=== PATIENT | female | born 1950 | race Caucasian/White ===

== ENCOUNTER 2018-06-28 22:36 | Inpatient (IN) | payer MEDICARE, MEDICAID ==
[2018-06-29 00:06] VITALS: BP 123/60
[2018-06-29] MEDS ORDERED: Magnesium Hydroxide (MOM) 30 mL UDC PO PRN (02:41)
[2018-06-29] MEDS ORDERED: Maalox 30 mL Cup PO PRN (02:41)
--- NOTE | 2018-06-29 09:37 | History and Physical ---
History of Present Illness - HPI Chief Complaint: Suicidal ideation HPI: Patient walked in to ER stating that she wanted to walk into traffic to kill hersel. She was put in [id number]. She was transferred to this unit for treatment. Vital Signs: Last Vital Signs Temp Pulse 56 06/29/18 07:06 Resp 18 06/29/18 07:06 BP 130/77 06/29/18 07:06 Pulse Ox 94 06/29/18 07:06 Past Medical History Cardiovascular: Report: No Pertinent Hx Pulmonary: Report: No Pertinent Hx [employer]: Report: No Pertinent Hx GI: Report: No Pertinent Hx Psych: Report: No Pertinent Hx Musculoskeletal: Report: Osteoarthritis, Stiffness Rheumatologic: Report: No pertinent Hx Infectious Disease: Report: No Pertinent Hx Renal/: Report: No Pertinent Hx Endocrine: Report: No Pertinent Hx Dermatology: Report: No Pertinent Hx - Past Surgical History Past Surgical History: Other (Hysterectomy) Social History Smoke: No Alcohol: None Drugs: None Lives: Homeless Domestic Violence: Negative - Allergies Allergies/Adverse Reactions: Allergies Allergy/AdvReac Type Severity Reaction Status Date / Time hydrocodone Allergy Verified 06/29/18 02:20 lorazepam Allergy Verified 06/29/18 02:20 sulfamethoxazole Allergy Verified 06/29/18 02:20 [From Bactrim] trimethoprim [From Bactrim] Allergy Verified 06/29/18 02:20 Review of Systems - Review of Systems Constitutional: Report: No Significant Eyes: Report: No Significant ENT: Report: No Significant Respiratory: Report: No Significant Cardiovascular: Report: No Significant Gastrointestinal: Report: No Significant Genitourinary: Report: No Significant Musculoskeletal: Report: Neck Pain, Leg Pain Skin: Report: No Significant Neurological: Report: No Significant Physical Exam - Physical Exam HEENT: Report: Ears Nose Throat within normal limits Neck: Report: Within normal limits Cardiovascular Systems: Report: Regular, Rate and Rhythm Respiratory: Report: Breath Sounds are within normal limits Abdomen: Report: Non-tender to palpation Back: Report: Inspection of back is within normal limits. Extremities: Report: Non-tender to palpation. Skin: Report: Color of skin is within normal limits, Warm, Dry Neuro/Psych: Report: Mood affect is within normal limits - Lab Results All Lab Results last 24 hours: Laboratory Results - last 24 hr 06/29/18 06:28 POC Glucose 105 - Assessment Assessment: Patient is awake, calm in no acute distress. Dx: suicidal ideation, Osteoarthritis. - Plan Plan: Patient is under Psychiatric care. Will continue [facility] home meds.
--- NOTE | 2018-06-30 02:45 | Psychiatric Evaluation ---
DATE OF SERVICE: 06/29/2018 CHIEF COMPLAINT: "I was suicidal." HISTORY OF PRESENT ILLNESS: A 67-year-old female, currently in the hospital, noting she was feeling desperate. She tried to run into traffic, taken to [facility], transferred here, alluding to ongoing nervousness, feeling on edge, stating her mom a year ago. She has been feeling very lonely and upset, not felipe for safety, feeling suicidal. PAST PSYCHIATRIC HISTORY: Noted including a brief psychotic episode when she was 26, major depressive episode with hospitalization at the age of 36, and one suicide attempt many years ago around the age of 36. SOCIAL HISTORY: Born in [place], never , no kids, had been living with her mom up until last year. Mom and now living with a friend. The patient states that she stopped smoking decades ago. 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 Medications were noted. MENTAL STATUS EXAMINATION: Stated age, fair eye contact. Speech within normal limits. Mood "depressed." Affect is withdrawn. Thought processes were linear. The patient not felipe for safety, ongoing concerns about suicidality. No HI. No overt psychotic symptoms. Insight and judgment diminished. Impulse control is poor. PROVISIONAL DIAGNOSES: Major depression, recurrent, severe. No current evidence of psychosis. Also, anxiety, unspecified. Under medical, please see full H and P. ESTIMATED LENGTH OF STAY: 5-7 days. ASSESSMENT: The patient is depressed, tried to kill herself, still not felipe for safety, feeling hopeless. PLAN: We will continue Zoloft and Abilify. TREATMENT PLAN: Includes group as well as milieu therapy. CONDITIONS FOR DISCHARGE: Improved mood, improved affect, cessation of any SI. JOB# [id number]
[2018-06-30 06:13] LABS: % BASOPHILS 0.5 % (0.0-2.0); % EOSINOPHILS 5.7 % (0.0-5.0); % LYMPHOCYTES 17.5 % (20.0-50.0); % MONOCYTES 5.7 % (2.0-10.0); % NEUTROPHILS 70.6 % (40.0-80.0); EOSINOPHILE ABSOLUTE 0.6 Th/cmm (0.1-0.4); HEMATOCRIT 41.9 % (41.0-60); HEMOGLOBIN 14.3 gm/dL (12-16); LYMPHOCYTE ABSOLUTE 1.7 Th/cmm (1.5-3.0); MEAN CELL VOLUME 89.9 fl (81-100); MEAN CORPUSCULAR HEMOGLOBIN 30.7 pg (27.0-31.0); MEAN CORPUSCULAR HGB CONC 34.1 pg (28.0-36.0); MEAN PLATELET VOLUME 7.6 fl; MONOCYTE ABSOLUTE 0.6 Th/cmm (0.3-1.0); PLATELET COUNT 313 Th/cmm (150-400); RED BLOOD COUNT 4.66 Mil/cmm (3.80-5.20); RED CELL DISTRIBUTION WIDTH 12.7 % (11.5-20.0); WHITE BLOOD COUNT 9.9 Th/cmm (4.8-10.8)
[2018-06-30 06:48] LABS: ALB/GLOB RATIO 1.3 (1.0-1.8); ALBUMIN 3.9 gm/dL (3.7-5.3); ALKALINE PHOSPHATASE 80 U/L (34-104); ANION GAP 11.6 (7.0-16.0); BILIRUBIN,TOTAL 0.5 mg/dL (0.3-1.0); BUN - UREA NITROGEN 26 mg/dL (7-25); CALCIUM SERUM 10.2 mg/dL (8.6-10.3); CARBON DIOXIDE 25.4 mEq/L (21.0-31.0); CHLORIDE 109 mEq/L (98-107); CREATININE - SERUM 0.8 mg/dL (0.6-1.2); GFR AFRICAN-AMERICAN > 60.0 ml/min (>90); GFR NON AFRICAN-AMERICAN > 60.0 ml/min; GLUCOSE 95 mg/dL (70-105); SGOT 16 U/L (13-39); SGPT/ALT 14 U/L (7-52); SODIUM SERUM 142 mEq/L (136-145); TOTAL PROTEIN,SERUM 6.8 gm/dL (6.0-8.3)
--- NOTE | 2018-06-30 09:55 | Progress Notes ---
DATE: 06/30/2018 SUBJECTIVE: The patient is noting that her anxiety is less than 10 bands. She has been very suicidal, wanting to run into traffic, still depressed, withdrawn, still appearing somewhat on edge, but noting that she is less nervous. It is unclear where she is going to go when she leaves here, still noted to be withdrawn, isolative, ongoing concerns about suicidality, poor impulse control. Medications were noted. ASSESSMENT: The patient remains symptomatic, currently on Zoloft, low dose Abilify. We will continue to monitor. Continue medications at current dose including p.r.n. medications. JOB# [id number]
--- NOTE | 2018-07-01 22:05 | Progress Notes ---
DATE: 07/01/2018 SUBJECTIVE: The patient in the hospital, she was feeling very desperate, wanted to run into traffic, taken to [facility]. The patient is stating that she feels nervous, somewhat on edge, noting psychological distress, turmoil, difficulty sleeping last night. She is noting some improvements, less intrusive thoughts, decrease in suicidal thoughts or thinking. Still isolative, withdrawn, mostly keeps to herself. Currently on Zoloft dosing, Abilify. ASSESSMENT: The patient remains symptomatic. Ongoing safety concerns, status post suicide effort. We will continue to monitor. Continue Zoloft, Abilify. Medications were noted. Monitor for side effects. JOB# [id number]
--- NOTE | 2018-07-02 16:34 | Progress Notes ---
DATE: 07/02/2018 SUBJECTIVE: A 67-year-old female, currently in the hospital, feeling desperate, tried to run into traffic, taken to the [facility]. On [id number], the patient still remains quite depressed, withdrawn, feeling anxious, on edge, ongoing SI, not felipe for safety. She has nowhere to go at this time. She is apparently homeless, concerns about her ability to care for basic needs. Sleeping fairly well, eating well. ASSESSMENT: The patient is depressed, withdrawn, ongoing safety concerns. Continue Zoloft dosing, Abilify. We will be increasing the dosing of Abilify today to target ongoing severe depressive symptoms. Medications were noted. PLAN: We will continue to monitor on inpatient basis. JOB# [id number]
--- NOTE | 2018-07-03 10:17 | General Progress Note ---
Subjective - Review of Systems Service Date: 07/03/18 Subjective: I am better Objective - Results Result Diagrams: 06/30/18 06:05 06/30/18 06:05 Recent Labs: Laboratory Last Values WBC 9.9 Th/cmm (4.8-10.8) 06/30/18 06:05 RBC 4.66 Mil/cmm (3.80-5.20) 06/30/18 06:05 Hgb 14.3 gm/dL (12-16) 06/30/18 06:05 Hct 41.9 % (41.0-60) 06/30/18 06:05 MCV 89.9 fl (81-100) 06/30/18 06:05 MCH 30.7 pg (27.0-31.0) 06/30/18 06:05 MCHC Differential 34.1 pg (28.0-36.0) 06/30/18 06:05 RDW 12.7 % (11.5-20.0) 06/30/18 06:05 Plt Count 313 Th/cmm (150-400) 06/30/18 06:05 MPV 7.6 fl 06/30/18 06:05 Neutrophils % 70.6 % (40.0-80.0) 06/30/18 06:05 Lymphocytes % 17.5 % (20.0-50.0) L 06/30/18 06:05 Monocytes % 5.7 % (2.0-10.0) 06/30/18 06:05 Eosinophils % 5.7 % (0.0-5.0) H 06/30/18 06:05 Basophils % 0.5 % (0.0-2.0) 06/30/18 06:05 Sodium 142 mEq/L (136-145) 06/30/18 06:05 Potassium 4.0 mEq/L (3.5-5.1) 06/30/18 06:05 Chloride 109 mEq/L (98-107) H 06/30/18 06:05 Carbon Dioxide 25.4 mEq/L (21.0-31.0) 06/30/18 06:05 Anion Gap 11.6 (7.0-16.0) 06/30/18 06:05 BUN 26 mg/dL (7-25) H 06/30/18 06:05 Creatinine 0.8 mg/dL (0.6-1.2) 06/30/18 06:05 Est GFR ( Amer) > 60.0 ml/min (>90) 06/30/18 06:05 Est GFR (Non-Af Amer) > 60.0 ml/min 06/30/18 06:05 BUN/Creatinine Ratio 32.5 06/30/18 06:05 Glucose 95 mg/dL (70-105) 06/30/18 06:05 POC Glucose 105 MG/DL (70 - 105) 06/29/18 06:28 Calcium 10.2 mg/dL (8.6-10.3) 06/30/18 06:05 Total Bilirubin 0.5 mg/dL (0.3-1.0) 06/30/18 06:05 AST 16 U/L (13-39) 06/30/18 06:05 ALT 14 U/L (7-52) 06/30/18 06:05 Alkaline Phosphatase 80 U/L (34-104) 06/30/18 06:05 Total Protein 6.8 gm/dL (6.0-8.3) 06/30/18 06:05 Albumin 3.9 gm/dL (3.7-5.3) 06/30/18 06:05 Globulin 2.9 gm/dL 06/30/18 06:05 Albumin/Globulin Ratio 1.3 (1.0-1.8) 06/30/18 06:05 TSH 1.05 uIU/ml (0.34-5.60) 06/30/18 06:05 - Physical Exam Vitals and I&O: Vital Signs Temp 96.7 F 07/03/18 06:21 Pulse 55 07/03/18 06:21 Resp 20 07/03/18 06:21 BP 99/62 07/03/18 06:21 Pulse Ox 97 07/03/18 06:21 Intake & Output 07/02/18 07/03/18 07/03/18 18:59 06:59 18:59 Intake Total 900 220 Balance 900 220 Intake: Oral 900 220 Other: # Voids 3 1 # Bowel Movements 1 0 Active Medications: Current Medications Al Hydrox/Mg Hydrox/Simethicone (Maalox) 30 ml PO Q4HR PRN PRN Reason: GI DISTRESS Stop: 08/28/18 02:40 Aripiprazole (Abilify) 5 mg PO DAILY [facility]; Protocol Stop: 09/01/18 08:59 Last Admin: 07/03/18 09:30 Dose: 5 mg Aspirin (Ecotrin) 81 mg PO DAILY [facility] Stop: 08/28/18 08:59 Last Admin: 07/03/18 09:31 Dose: 81 mg Hydroxyzine Pamoate (Vistaril) 25 mg PO QID PRN; Protocol PRN Reason: Anxiety Stop: 08/28/18 02:46 Last Admin: 07/02/18 11:23 Dose: 25 mg Ibuprofen (Motrin) 800 mg PO BID [facility] Stop: 08/28/18 08:59 Last Admin: 07/03/18 09:32 Dose: Not Given Magnesium Hydroxide (Milk Of Magnesia) 30 ml PO HS PRN PRN Reason: Constipation Mupirocin (Bactroban Oint) 1 appl NS BID [facility] Stop: 07/05/18 09:01 Last Admin: 07/03/18 09:31 Dose: 1 appl Sertraline HCl (Zoloft) 50 mg PO DAILY [facility]; Protocol Stop: 08/28/18 08:59 Last Admin: 07/03/18 09:31 Dose: 50 mg Simvastatin (Zocor) 40 mg PO HS [facility]; Protocol Stop: 08/28/18 20:59 Last Admin: 07/02/18 21:02 Dose: 40 mg Vitamin D (Vitamin D) 400 iu PO DAILY [facility] Stop: 08/28/18 08:59 Last Admin: 07/03/18 09:31 Dose: 400 iu Zolpidem Tartrate (Ambien) 5 mg PO HS PRN PRN Reason: Insomnia Stop: 08/28/18 02:59 Last Admin: 07/02/18 21:03 Dose: 5 mg General: Alert, No acute distress HEENT: Atraumatic Neck: Supple Cardiovascular: Regular rate Abdomen: Bowel sounds, Soft Extremities: Other (No edema) Neurological: Normal gait Skin: Other (Warm and dry) Psych/Mental Status: Mental status NL Assessment/Plan - Assessment Assessment: Patient is awake, calm in no acute distress. Dx: suicidal ideation, Osteoarthritis. - Plan Plan: Patient is under Psychiatric care. Will continue [facility] meds.
--- NOTE | 2018-07-03 19:54 | Progress Notes ---
DATE: 06/29/2018 Case was discussed with staff of the patient, reviewed records. This is a 67-year-old female who because of feeling depressed, she tried to run into traffic, taken to [facility], transferred here, alluding to ongoing nervousness, feeling on edge, stating that her mother a year ago. She has been feeling very lonely and upset, not able to contract for safety, feeling suicidal. She has a history of brief psychotic episode at age 26. She was hospitalized at age 36 because of major depressive episode. She has a history of suicide attempt around 36. She was never , no children, living with her mom until a year ago. Mom , now living with a friend. The patient says she stopped smoking decades ago. 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 The patient continues to be depressed, overwhelmed, withdrawn, feeling anxious, on edge, ongoing suicidal ideation. She is currently homeless and was tried to work on placement. She has not been able to sleep or eat very well. She is on Abilify 5 mg daily as well as Zoloft 50 mg daily with no side effects, no sedation, no nausea and we will continue the patient in group therapy, milieu therapy, and adjust her medication as needed. JOB# [id number]
--- NOTE | 2018-07-04 08:38 | General Progress Note ---
Subjective - Review of Systems Service Date: 07/04/18 Subjective: I am better Objective - Results Result Diagrams: 06/30/18 06:05 06/30/18 06:05 Recent Labs: Laboratory Last Values WBC 9.9 Th/cmm (4.8-10.8) 06/30/18 06:05 RBC 4.66 Mil/cmm (3.80-5.20) 06/30/18 06:05 Hgb 14.3 gm/dL (12-16) 06/30/18 06:05 Hct 41.9 % (41.0-60) 06/30/18 06:05 MCV 89.9 fl (81-100) 06/30/18 06:05 MCH 30.7 pg (27.0-31.0) 06/30/18 06:05 MCHC Differential 34.1 pg (28.0-36.0) 06/30/18 06:05 RDW 12.7 % (11.5-20.0) 06/30/18 06:05 Plt Count 313 Th/cmm (150-400) 06/30/18 06:05 MPV 7.6 fl 06/30/18 06:05 Neutrophils % 70.6 % (40.0-80.0) 06/30/18 06:05 Lymphocytes % 17.5 % (20.0-50.0) L 06/30/18 06:05 Monocytes % 5.7 % (2.0-10.0) 06/30/18 06:05 Eosinophils % 5.7 % (0.0-5.0) H 06/30/18 06:05 Basophils % 0.5 % (0.0-2.0) 06/30/18 06:05 Sodium 142 mEq/L (136-145) 06/30/18 06:05 Potassium 4.0 mEq/L (3.5-5.1) 06/30/18 06:05 Chloride 109 mEq/L (98-107) H 06/30/18 06:05 Carbon Dioxide 25.4 mEq/L (21.0-31.0) 06/30/18 06:05 Anion Gap 11.6 (7.0-16.0) 06/30/18 06:05 BUN 26 mg/dL (7-25) H 06/30/18 06:05 Creatinine 0.8 mg/dL (0.6-1.2) 06/30/18 06:05 Est GFR ( Amer) > 60.0 ml/min (>90) 06/30/18 06:05 Est GFR (Non-Af Amer) > 60.0 ml/min 06/30/18 06:05 BUN/Creatinine Ratio 32.5 06/30/18 06:05 Glucose 95 mg/dL (70-105) 06/30/18 06:05 POC Glucose 105 MG/DL (70 - 105) 06/29/18 06:28 Calcium 10.2 mg/dL (8.6-10.3) 06/30/18 06:05 Total Bilirubin 0.5 mg/dL (0.3-1.0) 06/30/18 06:05 AST 16 U/L (13-39) 06/30/18 06:05 ALT 14 U/L (7-52) 06/30/18 06:05 Alkaline Phosphatase 80 U/L (34-104) 06/30/18 06:05 Total Protein 6.8 gm/dL (6.0-8.3) 06/30/18 06:05 Albumin 3.9 gm/dL (3.7-5.3) 06/30/18 06:05 Globulin 2.9 gm/dL 06/30/18 06:05 Albumin/Globulin Ratio 1.3 (1.0-1.8) 06/30/18 06:05 TSH 1.05 uIU/ml (0.34-5.60) 06/30/18 06:05 - Physical Exam Vitals and I&O: Vital Signs Temp 97 F 07/04/18 06:45 Pulse 60 07/04/18 06:45 Resp 20 07/04/18 06:45 BP 109/60 07/04/18 06:45 Pulse Ox 97 07/04/18 06:45 Intake & Output 07/03/18 07/04/18 07/04/18 18:59 06:59 18:59 Intake Total 120 Balance 120 Intake: Oral 120 Other: # Voids 2 2 # Bowel Movements 1 Active Medications: Current Medications Al Hydrox/Mg Hydrox/Simethicone (Maalox) 30 ml PO Q4HR PRN PRN Reason: GI DISTRESS Stop: 08/28/18 02:40 Aripiprazole (Abilify) 5 mg PO DAILY [facility]; Protocol Stop: 09/01/18 08:59 Last Admin: 07/04/18 08:05 Dose: 5 mg Aspirin (Ecotrin) 81 mg PO DAILY [facility] Stop: 08/28/18 08:59 Last Admin: 07/04/18 08:05 Dose: 81 mg Hydroxyzine Pamoate (Vistaril) 25 mg PO QID PRN; Protocol PRN Reason: Anxiety Stop: 08/28/18 02:46 Last Admin: 07/03/18 10:25 Dose: 25 mg Ibuprofen (Motrin) 800 mg PO BID [facility] Stop: 08/28/18 08:59 Last Admin: 07/04/18 08:03 Dose: Not Given Magnesium Hydroxide (Milk Of Magnesia) 30 ml PO HS PRN PRN Reason: Constipation Mupirocin (Bactroban Oint) 1 appl NS BID [facility] Stop: 07/05/18 09:01 Last Admin: 07/04/18 08:06 Dose: 1 appl Sertraline HCl (Zoloft) 50 mg PO DAILY [facility]; Protocol Stop: 08/28/18 08:59 Last Admin: 07/04/18 08:06 Dose: 50 mg Simvastatin (Zocor) 40 mg PO HS [facility]; Protocol Stop: 08/28/18 20:59 Last Admin: 07/03/18 20:46 Dose: 40 mg Vitamin D (Vitamin D) 400 iu PO DAILY [facility] Stop: 08/28/18 08:59 Last Admin: 07/04/18 08:06 Dose: 400 iu Zolpidem Tartrate (Ambien) 5 mg PO HS PRN PRN Reason: Insomnia Stop: 08/28/18 02:59 Last Admin: 07/03/18 20:46 Dose: 5 mg General: Alert, No acute distress HEENT: Atraumatic Neck: Supple Cardiovascular: Regular rate Abdomen: Bowel sounds, Soft Extremities: Other (No edema) Neurological: Normal gait Skin: Other (Warm and dry) Psych/Mental Status: Mental status NL Assessment/Plan - Assessment Assessment: Patient is awake, calm in no acute distress. Dx: suicidal ideation, Osteoarthritis. - Plan Plan: Patient is under Psychiatric care. Will continue [facility] home meds.
--- NOTE | 2018-07-04 14:30 | Progress Notes ---
DATE: 07/04/2018 SUBJECTIVE: Case was discussed with staff of the patient, reviewed records. The patient continues to be depressed, overwhelmed, continues to be nervous, edgy. She has been homeless. Mother a year ago. Continues to be unpredictable, impulsive, needing redirection. She has been compliant with the medication with no side effects, no sedation or nausea, no extrapyramidal symptoms, working on placement. She was started on Abilify yesterday with no side effects, no sedation, no nausea, upon extrapyramidal symptoms. We will continue outpatient group therapy, milieu therapy, adjust medication as needed. JOB# [id number]
--- NOTE | 2018-07-05 09:15 | General Progress Note ---
Subjective - Review of Systems Service Date: 07/05/18 Subjective: I am better Objective - Results Result Diagrams: 06/30/18 06:05 06/30/18 06:05 Recent Labs: Laboratory Last Values WBC 9.9 Th/cmm (4.8-10.8) 06/30/18 06:05 RBC 4.66 Mil/cmm (3.80-5.20) 06/30/18 06:05 Hgb 14.3 gm/dL (12-16) 06/30/18 06:05 Hct 41.9 % (41.0-60) 06/30/18 06:05 MCV 89.9 fl (81-100) 06/30/18 06:05 MCH 30.7 pg (27.0-31.0) 06/30/18 06:05 MCHC Differential 34.1 pg (28.0-36.0) 06/30/18 06:05 RDW 12.7 % (11.5-20.0) 06/30/18 06:05 Plt Count 313 Th/cmm (150-400) 06/30/18 06:05 MPV 7.6 fl 06/30/18 06:05 Neutrophils % 70.6 % (40.0-80.0) 06/30/18 06:05 Lymphocytes % 17.5 % (20.0-50.0) L 06/30/18 06:05 Monocytes % 5.7 % (2.0-10.0) 06/30/18 06:05 Eosinophils % 5.7 % (0.0-5.0) H 06/30/18 06:05 Basophils % 0.5 % (0.0-2.0) 06/30/18 06:05 Sodium 142 mEq/L (136-145) 06/30/18 06:05 Potassium 4.0 mEq/L (3.5-5.1) 06/30/18 06:05 Chloride 109 mEq/L (98-107) H 06/30/18 06:05 Carbon Dioxide 25.4 mEq/L (21.0-31.0) 06/30/18 06:05 Anion Gap 11.6 (7.0-16.0) 06/30/18 06:05 BUN 26 mg/dL (7-25) H 06/30/18 06:05 Creatinine 0.8 mg/dL (0.6-1.2) 06/30/18 06:05 Est GFR ( Amer) > 60.0 ml/min (>90) 06/30/18 06:05 Est GFR (Non-Af Amer) > 60.0 ml/min 06/30/18 06:05 BUN/Creatinine Ratio 32.5 06/30/18 06:05 Glucose 95 mg/dL (70-105) 06/30/18 06:05 POC Glucose 105 MG/DL (70 - 105) 06/29/18 06:28 Calcium 10.2 mg/dL (8.6-10.3) 06/30/18 06:05 Total Bilirubin 0.5 mg/dL (0.3-1.0) 06/30/18 06:05 AST 16 U/L (13-39) 06/30/18 06:05 ALT 14 U/L (7-52) 06/30/18 06:05 Alkaline Phosphatase 80 U/L (34-104) 06/30/18 06:05 Total Protein 6.8 gm/dL (6.0-8.3) 06/30/18 06:05 Albumin 3.9 gm/dL (3.7-5.3) 06/30/18 06:05 Globulin 2.9 gm/dL 06/30/18 06:05 Albumin/Globulin Ratio 1.3 (1.0-1.8) 06/30/18 06:05 TSH 1.05 uIU/ml (0.34-5.60) 06/30/18 06:05 - Physical Exam Vitals and I&O: Vital Signs Temp 98.4 F 07/04/18 20:00 Pulse 58 07/04/18 20:00 Resp 18 07/04/18 20:00 BP 112/66 07/04/18 20:00 Pulse Ox 97 07/04/18 20:00 Intake & Output 07/04/18 07/05/18 07/05/18 18:59 06:59 18:59 Other: # Voids 2 # Bowel Movements 0 Active Medications: Current Medications Al Hydrox/Mg Hydrox/Simethicone (Maalox) 30 ml PO Q4HR PRN PRN Reason: GI DISTRESS Stop: 08/28/18 02:40 Aripiprazole (Abilify) 5 mg PO DAILY [facility]; Protocol Stop: 09/01/18 08:59 Last Admin: 07/04/18 08:05 Dose: 5 mg Aspirin (Ecotrin) 81 mg PO DAILY [facility] Stop: 08/28/18 08:59 Last Admin: 07/04/18 08:05 Dose: 81 mg Hydroxyzine Pamoate (Vistaril) 25 mg PO QID PRN; Protocol PRN Reason: Anxiety Stop: 08/28/18 02:46 Last Admin: 07/04/18 15:52 Dose: 25 mg Ibuprofen (Motrin) 800 mg PO BID [facility] Stop: 08/28/18 08:59 Last Admin: 07/04/18 16:04 Dose: Not Given Magnesium Hydroxide (Milk Of Magnesia) 30 ml PO HS PRN PRN Reason: Constipation Sertraline HCl (Zoloft) 50 mg PO DAILY [facility]; Protocol Stop: 08/28/18 08:59 Last Admin: 07/04/18 08:06 Dose: 50 mg Simvastatin (Zocor) 40 mg PO HS [facility]; Protocol Stop: 08/28/18 20:59 Last Admin: 07/04/18 21:10 Dose: 40 mg Vitamin D (Vitamin D) 400 iu PO DAILY [facility] Stop: 08/28/18 08:59 Last Admin: 07/04/18 08:06 Dose: 400 iu Zolpidem Tartrate (Ambien) 5 mg PO HS PRN PRN Reason: Insomnia Stop: 08/28/18 02:59 Last Admin: 07/04/18 21:10 Dose: 5 mg General: Alert, No acute distress HEENT: Atraumatic Neck: Supple Cardiovascular: Regular rate Abdomen: Bowel sounds, Soft Extremities: Other (No edema) Neurological: Normal gait Skin: Other (Warm and dry) Psych/Mental Status: Mental status NL Assessment/Plan - Assessment Assessment: Patient is awake, calm in no acute distress. Dx: suicidal ideation, Osteoarthritis. - Plan Plan: Patient is under Psychiatric care. Will continue with home meds.
--- NOTE | 2018-07-05 14:34 | Progress Notes ---
DATE: 07/05/2018 Case was discussed with staff of the patient, reviewed records. The patient is delusional, paranoid, confused, unable to make safe plan for self-care. She said there is something she talked to me about yesterday and I asked her about writing and then she wrote me something from the Bible. She is religiously preoccupied, unpredictable and impulsive, needing redirection and confused. She was started on Abilify 2 days ago. It is still early to make further adjustment because of her age. No side effects with the medication, no sedation, no nausea and no extrapyramidal symptoms. We will continue working also on placement. We will continue the patient group therapy, milieu therapy, and adjust the medications as needed. JOB# [id number]
--- NOTE | 2018-07-06 11:33 | General Progress Note ---
Subjective - Review of Systems Service Date: 07/06/18 Subjective: I am better Objective - Results Result Diagrams: 06/30/18 06:05 06/30/18 06:05 Recent Labs: Laboratory Last Values WBC 9.9 Th/cmm (4.8-10.8) 06/30/18 06:05 RBC 4.66 Mil/cmm (3.80-5.20) 06/30/18 06:05 Hgb 14.3 gm/dL (12-16) 06/30/18 06:05 Hct 41.9 % (41.0-60) 06/30/18 06:05 MCV 89.9 fl (81-100) 06/30/18 06:05 MCH 30.7 pg (27.0-31.0) 06/30/18 06:05 MCHC Differential 34.1 pg (28.0-36.0) 06/30/18 06:05 RDW 12.7 % (11.5-20.0) 06/30/18 06:05 Plt Count 313 Th/cmm (150-400) 06/30/18 06:05 MPV 7.6 fl 06/30/18 06:05 Neutrophils % 70.6 % (40.0-80.0) 06/30/18 06:05 Lymphocytes % 17.5 % (20.0-50.0) L 06/30/18 06:05 Monocytes % 5.7 % (2.0-10.0) 06/30/18 06:05 Eosinophils % 5.7 % (0.0-5.0) H 06/30/18 06:05 Basophils % 0.5 % (0.0-2.0) 06/30/18 06:05 Sodium 142 mEq/L (136-145) 06/30/18 06:05 Potassium 4.0 mEq/L (3.5-5.1) 06/30/18 06:05 Chloride 109 mEq/L (98-107) H 06/30/18 06:05 Carbon Dioxide 25.4 mEq/L (21.0-31.0) 06/30/18 06:05 Anion Gap 11.6 (7.0-16.0) 06/30/18 06:05 BUN 26 mg/dL (7-25) H 06/30/18 06:05 Creatinine 0.8 mg/dL (0.6-1.2) 06/30/18 06:05 Est GFR ( Amer) > 60.0 ml/min (>90) 06/30/18 06:05 Est GFR (Non-Af Amer) > 60.0 ml/min 06/30/18 06:05 BUN/Creatinine Ratio 32.5 06/30/18 06:05 Glucose 95 mg/dL (70-105) 06/30/18 06:05 POC Glucose 105 MG/DL (70 - 105) 06/29/18 06:28 Calcium 10.2 mg/dL (8.6-10.3) 06/30/18 06:05 Total Bilirubin 0.5 mg/dL (0.3-1.0) 06/30/18 06:05 AST 16 U/L (13-39) 06/30/18 06:05 ALT 14 U/L (7-52) 06/30/18 06:05 Alkaline Phosphatase 80 U/L (34-104) 06/30/18 06:05 Total Protein 6.8 gm/dL (6.0-8.3) 06/30/18 06:05 Albumin 3.9 gm/dL (3.7-5.3) 06/30/18 06:05 Globulin 2.9 gm/dL 06/30/18 06:05 Albumin/Globulin Ratio 1.3 (1.0-1.8) 06/30/18 06:05 TSH 1.05 uIU/ml (0.34-5.60) 06/30/18 06:05 - Physical Exam Vitals and I&O: Vital Signs Temp 96.9 F 07/06/18 06:29 Pulse 68 07/06/18 06:29 Resp 19 07/06/18 06:29 BP 112/62 07/06/18 06:29 Pulse Ox 97 07/06/18 06:29 Intake & Output 07/05/18 07/06/18 07/06/18 18:59 06:59 18:59 Intake Total 1200 120 Balance 1200 120 Intake: Oral 1200 120 Other: # Voids 2 # Bowel Movements 1 0 Active Medications: Current Medications Al Hydrox/Mg Hydrox/Simethicone (Maalox) 30 ml PO Q4HR PRN PRN Reason: GI DISTRESS Stop: 08/28/18 02:40 Aripiprazole (Abilify) 5 mg PO DAILY [facility]; Protocol Stop: 09/01/18 08:59 Last Admin: 07/06/18 08:44 Dose: 5 mg Aspirin (Ecotrin) 81 mg PO DAILY [facility] Stop: 08/28/18 08:59 Last Admin: 07/06/18 08:44 Dose: 81 mg Hydroxyzine Pamoate (Vistaril) 25 mg PO QID PRN; Protocol PRN Reason: Anxiety Stop: 08/28/18 02:46 Last Admin: 07/05/18 16:27 Dose: 25 mg Ibuprofen (Motrin) 800 mg PO BID [facility] Stop: 08/28/18 08:59 Last Admin: 07/06/18 08:42 Dose: 800 mg Magnesium Hydroxide (Milk Of Magnesia) 30 ml PO HS PRN PRN Reason: Constipation Sertraline HCl (Zoloft) 50 mg PO DAILY [facility]; Protocol Stop: 08/28/18 08:59 Last Admin: 07/06/18 08:44 Dose: 50 mg Simvastatin (Zocor) 40 mg PO HS [facility]; Protocol Stop: 08/28/18 20:59 Last Admin: 07/05/18 20:27 Dose: 40 mg Vitamin D (Vitamin D) 400 iu PO DAILY [facility] Stop: 08/28/18 08:59 Last Admin: 07/06/18 08:45 Dose: 400 iu Zolpidem Tartrate (Ambien) 5 mg PO HS PRN PRN Reason: Insomnia Stop: 08/28/18 02:59 Last Admin: 07/05/18 20:27 Dose: 5 mg General: Alert, No acute distress HEENT: Atraumatic Neck: Supple Cardiovascular: Regular rate Abdomen: Bowel sounds, Soft Extremities: Other (No edema) Neurological: Normal gait Skin: Other (Warm and dry) Psych/Mental Status: Mental status NL Assessment/Plan - Assessment Assessment: Patient is awake, calm in no acute distress. Dx: suicidal ideation, Osteoarthritis. - Plan Plan: Patient is under Psychiatric care. Will continue with home meds. Nutritional Asmnt/Malnutr-PDOC - Dietary Evaluation Malnutrition Findings (Please click <Entered> for more info): Nutritional Asmnt/Malnutrition Start: 07/05/18 13: 17 Text: Status: Complete Freq: Protocol: Document 07/05/18 13:18 [email or web address] (Rec: 07/05/18 13:25 [email or web address]) Nutritional Asmnt/Malnutrition Patient General Information Nutritional Screening Low Risk Diagnosis depression & SI Pertinent Medical Hx/Surgical Hx osteoarthritis, stiffness, hysterectomy Subjective Information Pt was walking in dining room at time of visit. Pt states she really likes the food and wants to thank the dietary department. PO intake is 75- 100% per EMR. Current Diet Order/ Nutrition Support regular Patient / S.O Can Pertinent Medications Vitamin D Pertinent Labs 06/30 Cl 109, BUN 26 Nutritional Hx/Data Height 1.52 m Height (Calculated Centimeters) 152.4 Current Weight (lbs) 68.039 kg Weight (Calculated Kilograms) 68.0 Weight (Calculated Grams) 45170.9 [place] Body Weight 100 Body Mass Index (BMI) 29.2 Weight Status Overweight GI Symptoms GI Symptoms None Last BM 1/2 Difficult in: None Food Allergies No Skin Integrity/Comment: intact, gema 21 Current %PO Good (75-100%) Estimated Nutritional Goals BEE in Kcals: Using Current wt Calories/Kcals/Kg 23-27 Kcals Calculated 4803-1048 Protein: Using Current wt Protein g/k.8-1 Protein Calculated 54-68 Fluid: ml 8622-2594 (1ml/kcal) Nutritional Problem No current Nutrition Prob Problem N/A Malnutrition Alert Is there a minimum of two criteria No selected? Query Text:Check all the applicable criteria. A minimum of two criteria are recommended for diagnosis of either severe or non-severe malnutrition. Malnutrition Related to Morbid Obesity Malnutrition related to morbid obesity No Intervention/Recommendation Comments 1. Continue with regular diet as ordered. 2. Monitor PO intake, wt, labs and skin integrity 3. F/U as low risk in 7 days Expected Outcomes/Goals Expected Outcomes/Goals Goal: PO intake to meet at least 75% of nutritional needs . Reviewed by Marika Harrison RD
--- NOTE | 2018-07-06 23:00 | Progress Notes ---
DATE: SUBJECTIVE: The patient was seen and evaluated. The patient's chart reviewed. This id Dr. Cordero, covering for Dr. Romeo. IDENTIFYING DATA: A 67-year-old female who was brought in here after the patient presented nervous and anxiety, and reporting a lot of thoughts about hurting herself. HOSPITAL COURSE: The patient has been started on Abilify 5 mg and also Zoloft 50 mg daily. Today on [id number] evaluation, the patient denies any complication and side effects of medication. She does report feeling overwhelmed, distressful and also the thoughts about not wanting to be alive continues to be present. MENTAL STATUS EXAMINATION: Depressed, melancholic, suicidal. ASSESSMENT AND PLAN: The patient is a 67-year-old female with a history of depression and with recent augmentation of Abilify to the dose of Zoloft has noted some mild improvement. We will continue with the current primary psychiatric treatment and plan and goals to target the patient's ongoing depressive symptoms and continue with both individual and group therapy. Continue to target the patient's coping skills. [facility]# [id number]
--- NOTE | 2018-07-07 10:49 | General Progress Note ---
Subjective - Review of Systems Service Date: 07/07/18 Subjective: I am better Objective - Results Result Diagrams: 06/30/18 06:05 06/30/18 06:05 Recent Labs: Laboratory Last Values WBC 9.9 Th/cmm (4.8-10.8) 06/30/18 06:05 RBC 4.66 Mil/cmm (3.80-5.20) 06/30/18 06:05 Hgb 14.3 gm/dL (12-16) 06/30/18 06:05 Hct 41.9 % (41.0-60) 06/30/18 06:05 MCV 89.9 fl (81-100) 06/30/18 06:05 MCH 30.7 pg (27.0-31.0) 06/30/18 06:05 MCHC Differential 34.1 pg (28.0-36.0) 06/30/18 06:05 RDW 12.7 % (11.5-20.0) 06/30/18 06:05 Plt Count 313 Th/cmm (150-400) 06/30/18 06:05 MPV 7.6 fl 06/30/18 06:05 Neutrophils % 70.6 % (40.0-80.0) 06/30/18 06:05 Lymphocytes % 17.5 % (20.0-50.0) L 06/30/18 06:05 Monocytes % 5.7 % (2.0-10.0) 06/30/18 06:05 Eosinophils % 5.7 % (0.0-5.0) H 06/30/18 06:05 Basophils % 0.5 % (0.0-2.0) 06/30/18 06:05 Sodium 142 mEq/L (136-145) 06/30/18 06:05 Potassium 4.0 mEq/L (3.5-5.1) 06/30/18 06:05 Chloride 109 mEq/L (98-107) H 06/30/18 06:05 Carbon Dioxide 25.4 mEq/L (21.0-31.0) 06/30/18 06:05 Anion Gap 11.6 (7.0-16.0) 06/30/18 06:05 BUN 26 mg/dL (7-25) H 06/30/18 06:05 Creatinine 0.8 mg/dL (0.6-1.2) 06/30/18 06:05 Est GFR ( Amer) > 60.0 ml/min (>90) 06/30/18 06:05 Est GFR (Non-Af Amer) > 60.0 ml/min 06/30/18 06:05 BUN/Creatinine Ratio 32.5 06/30/18 06:05 Glucose 95 mg/dL (70-105) 06/30/18 06:05 POC Glucose 105 MG/DL (70 - 105) 06/29/18 06:28 Calcium 10.2 mg/dL (8.6-10.3) 06/30/18 06:05 Total Bilirubin 0.5 mg/dL (0.3-1.0) 06/30/18 06:05 AST 16 U/L (13-39) 06/30/18 06:05 ALT 14 U/L (7-52) 06/30/18 06:05 Alkaline Phosphatase 80 U/L (34-104) 06/30/18 06:05 Total Protein 6.8 gm/dL (6.0-8.3) 06/30/18 06:05 Albumin 3.9 gm/dL (3.7-5.3) 06/30/18 06:05 Globulin 2.9 gm/dL 06/30/18 06:05 Albumin/Globulin Ratio 1.3 (1.0-1.8) 06/30/18 06:05 TSH 1.05 uIU/ml (0.34-5.60) 06/30/18 06:05 - Physical Exam Vitals and I&O: Vital Signs Temp 98.8 F 07/07/18 06:15 Pulse 59 07/07/18 06:15 Resp 20 07/07/18 06:15 BP 100/58 07/07/18 06:15 Pulse Ox 98 07/07/18 06:15 Intake & Output 07/06/18 07/07/18 07/07/18 18:59 06:59 18:59 Intake Total 1500 120 Balance 1500 120 Intake: Oral 1500 120 Other: # Voids 3 3 # Bowel Movements 0 0 Active Medications: Current Medications Al Hydrox/Mg Hydrox/Simethicone (Maalox) 30 ml PO Q4HR PRN PRN Reason: GI DISTRESS Stop: 08/28/18 02:40 Aripiprazole (Abilify) 5 mg PO DAILY [facility]; Protocol Stop: 09/01/18 08:59 Last Admin: 07/07/18 08:55 Dose: 5 mg Aspirin (Ecotrin) 81 mg PO DAILY [facility] Stop: 08/28/18 08:59 Last Admin: 07/07/18 08:55 Dose: 81 mg Hydroxyzine Pamoate (Vistaril) 25 mg PO QID PRN; Protocol PRN Reason: Anxiety Stop: 08/28/18 02:46 Last Admin: 07/06/18 17:17 Dose: 25 mg Ibuprofen (Motrin) 800 mg PO BID [facility] Stop: 08/28/18 08:59 Last Admin: 07/07/18 08:55 Dose: 800 mg Magnesium Hydroxide (Milk Of Magnesia) 30 ml PO HS PRN PRN Reason: Constipation Sertraline HCl (Zoloft) 50 mg PO DAILY [facility]; Protocol Stop: 08/28/18 08:59 Last Admin: 07/07/18 08:56 Dose: 50 mg Simvastatin (Zocor) 40 mg PO HS [facility]; Protocol Stop: 08/28/18 20:59 Last Admin: 07/06/18 20:40 Dose: 40 mg Vitamin D (Vitamin D) 400 iu PO DAILY [facility] Stop: 08/28/18 08:59 Last Admin: 07/07/18 08:54 Dose: 400 iu Zolpidem Tartrate (Ambien) 5 mg PO HS PRN PRN Reason: Insomnia Stop: 08/28/18 02:59 Last Admin: 07/06/18 20:40 Dose: 5 mg General: Alert, No acute distress HEENT: Atraumatic Neck: Supple Cardiovascular: Regular rate Abdomen: Bowel sounds, Soft Extremities: Other (No edema) Neurological: Normal gait Skin: Other (Warm and dry) Psych/Mental Status: Mental status NL Assessment/Plan - Assessment Assessment: Patient is awake, calm in no acute distress. Dx: suicidal ideation, Osteoarthritis. - Plan Plan: Patient is under Psychiatric care. Will continue with home meds. Nutritional Asmnt/Malnutr-PDOC - Dietary Evaluation Malnutrition Findings (Please click <Entered> for more info): Nutritional Asmnt/Malnutrition Start: 07/05/18 13: 17 Text: Status: Complete Freq: Protocol: Document 07/05/18 13:18 [email or web address] (Rec: 07/05/18 13:25 [email or web address]) Nutritional Asmnt/Malnutrition Patient General Information Nutritional Screening Low Risk Diagnosis depression & SI Pertinent Medical Hx/Surgical Hx osteoarthritis, stiffness, hysterectomy Subjective Information Pt was walking in dining room at time of visit. Pt states she really likes the food and wants to thank the dietary department. PO intake is 75- 100% per EMR. Current Diet Order/ Nutrition Support regular Patient / S.O Can Pertinent Medications Vitamin D Pertinent Labs 06/30 Cl 109, BUN 26 Nutritional Hx/Data Height 1.52 m Height (Calculated Centimeters) 152.4 Current Weight (lbs) 68.039 kg Weight (Calculated Kilograms) 68.0 Weight (Calculated Grams) 39600.9 [place] Body Weight 100 Body Mass Index (BMI) 29.2 Weight Status Overweight GI Symptoms GI Symptoms None Last BM 1/2 Difficult in: None Food Allergies No Skin Integrity/Comment: intact, gema 21 Current %PO Good (75-100%) Estimated Nutritional Goals BEE in Kcals: Using Current wt Calories/Kcals/Kg 23-27 Kcals Calculated 6691-9288 Protein: Using Current wt Protein g/k.8-1 Protein Calculated 54-68 Fluid: ml 6443-2144 (1ml/kcal) Nutritional Problem No current Nutrition Prob Problem N/A Malnutrition Alert Is there a minimum of two criteria No selected? Query Text:Check all the applicable criteria. A minimum of two criteria are recommended for diagnosis of either severe or non-severe malnutrition. Malnutrition Related to Morbid Obesity Malnutrition related to morbid obesity No Intervention/Recommendation Comments 1. Continue with regular diet as ordered. 2. Monitor PO intake, wt, labs and skin integrity 3. F/U as low risk in 7 days Expected Outcomes/Goals Expected Outcomes/Goals Goal: PO intake to meet at least 75% of nutritional needs . Reviewed by Marika Harrison RD
--- NOTE | 2018-07-07 22:17 | Progress Notes ---
DATE: 07/07/[address] Romeo. Today on [id number] evaluation, the patient denies any side effects of the augmentation of Abilify with her Zoloft. She reports she started the medication. Today on [id number] also reporting her mood is starting to feel a bit better, less intense depression. MENTAL STATUS EXAMINATION: Still observed to be depressed, disengaged. ASSESSMENT AND PLAN: The patient is a 67-year-old female with a history of severe depression, anxiety, status post suicidal gesture, unable to formulate a safe plan. We will continue with the current medication regimen. She continues to reach a steady state. JOB# [id number]
--- NOTE | 2018-07-08 09:11 | General Progress Note ---
Subjective - Review of Systems Service Date: 07/08/18 Subjective: I am fine Objective - Results Result Diagrams: 06/30/18 06:05 06/30/18 06:05 Recent Labs: Laboratory Last Values WBC 9.9 Th/cmm (4.8-10.8) 06/30/18 06:05 RBC 4.66 Mil/cmm (3.80-5.20) 06/30/18 06:05 Hgb 14.3 gm/dL (12-16) 06/30/18 06:05 Hct 41.9 % (41.0-60) 06/30/18 06:05 MCV 89.9 fl (81-100) 06/30/18 06:05 MCH 30.7 pg (27.0-31.0) 06/30/18 06:05 MCHC Differential 34.1 pg (28.0-36.0) 06/30/18 06:05 RDW 12.7 % (11.5-20.0) 06/30/18 06:05 Plt Count 313 Th/cmm (150-400) 06/30/18 06:05 MPV 7.6 fl 06/30/18 06:05 Neutrophils % 70.6 % (40.0-80.0) 06/30/18 06:05 Lymphocytes % 17.5 % (20.0-50.0) L 06/30/18 06:05 Monocytes % 5.7 % (2.0-10.0) 06/30/18 06:05 Eosinophils % 5.7 % (0.0-5.0) H 06/30/18 06:05 Basophils % 0.5 % (0.0-2.0) 06/30/18 06:05 Sodium 142 mEq/L (136-145) 06/30/18 06:05 Potassium 4.0 mEq/L (3.5-5.1) 06/30/18 06:05 Chloride 109 mEq/L (98-107) H 06/30/18 06:05 Carbon Dioxide 25.4 mEq/L (21.0-31.0) 06/30/18 06:05 Anion Gap 11.6 (7.0-16.0) 06/30/18 06:05 BUN 26 mg/dL (7-25) H 06/30/18 06:05 Creatinine 0.8 mg/dL (0.6-1.2) 06/30/18 06:05 Est GFR ( Amer) > 60.0 ml/min (>90) 06/30/18 06:05 Est GFR (Non-Af Amer) > 60.0 ml/min 06/30/18 06:05 BUN/Creatinine Ratio 32.5 06/30/18 06:05 Glucose 95 mg/dL (70-105) 06/30/18 06:05 POC Glucose 105 MG/DL (70 - 105) 06/29/18 06:28 Calcium 10.2 mg/dL (8.6-10.3) 06/30/18 06:05 Total Bilirubin 0.5 mg/dL (0.3-1.0) 06/30/18 06:05 AST 16 U/L (13-39) 06/30/18 06:05 ALT 14 U/L (7-52) 06/30/18 06:05 Alkaline Phosphatase 80 U/L (34-104) 06/30/18 06:05 Total Protein 6.8 gm/dL (6.0-8.3) 06/30/18 06:05 Albumin 3.9 gm/dL (3.7-5.3) 06/30/18 06:05 Globulin 2.9 gm/dL 06/30/18 06:05 Albumin/Globulin Ratio 1.3 (1.0-1.8) 06/30/18 06:05 TSH 1.05 uIU/ml (0.34-5.60) 06/30/18 06:05 - Physical Exam Vitals and I&O: Vital Signs Temp 98.2 F 07/08/18 06:02 Pulse 50 07/08/18 06:02 Resp 20 07/08/18 06:02 BP 110/54 07/08/18 06:02 Pulse Ox 96 07/08/18 06:02 Intake & Output 07/07/18 07/08/18 07/08/18 18:59 06:59 18:59 Intake Total 1400 240 Balance 1400 240 Intake: Oral 1400 240 Other: # Voids 3 1 # Bowel Movements 1 0 Active Medications: Current Medications Al Hydrox/Mg Hydrox/Simethicone (Maalox) 30 ml PO Q4HR PRN PRN Reason: GI DISTRESS Stop: 08/28/18 02:40 Aripiprazole (Abilify) 5 mg PO DAILY [facility]; Protocol Stop: 09/01/18 08:59 Last Admin: 07/08/18 08:50 Dose: 5 mg Aspirin (Ecotrin) 81 mg PO DAILY [facility] Stop: 08/28/18 08:59 Last Admin: 07/08/18 08:50 Dose: 81 mg Hydroxyzine Pamoate (Vistaril) 25 mg PO QID PRN; Protocol PRN Reason: Anxiety Stop: 08/28/18 02:46 Last Admin: 07/07/18 15:09 Dose: 25 mg Ibuprofen (Motrin) 800 mg PO BID [facility] Stop: 08/28/18 08:59 Last Admin: 07/08/18 08:51 Dose: 800 mg Magnesium Hydroxide (Milk Of Magnesia) 30 ml PO HS PRN PRN Reason: Constipation Sertraline HCl (Zoloft) 50 mg PO DAILY [facility]; Protocol Stop: 08/28/18 08:59 Last Admin: 07/08/18 08:50 Dose: 50 mg Simvastatin (Zocor) 40 mg PO HS [facility]; Protocol Stop: 08/28/18 20:59 Last Admin: 07/07/18 21:18 Dose: 40 mg Vitamin D (Vitamin D) 400 iu PO DAILY [facility] Stop: 08/28/18 08:59 Last Admin: 07/08/18 08:50 Dose: 400 iu Zolpidem Tartrate (Ambien) 5 mg PO HS PRN PRN Reason: Insomnia Stop: 08/28/18 02:59 Last Admin: 07/07/18 21:21 Dose: 5 mg General: Alert, No acute distress HEENT: Atraumatic Neck: Supple Cardiovascular: Regular rate Abdomen: Bowel sounds, Soft Extremities: Other (No edema) Neurological: Normal gait Skin: Other (Warm and dry) Psych/Mental Status: Mental status NL Assessment/Plan - Assessment Assessment: Patient is awake, calm in no acute distress. Dx: suicidal ideation, Osteoarthritis. - Plan Plan: Patient is under Psychiatric care. Will continue with home meds. Nutritional Asmnt/Malnutr-PDOC - Dietary Evaluation Malnutrition Findings (Please click <Entered> for more info): Nutritional Asmnt/Malnutrition Start: 07/05/18 13: 17 Text: Status: Complete Freq: Protocol: Document 07/05/18 13:18 [email or web address] (Rec: 07/05/18 13:25 [email or web address]) Nutritional Asmnt/Malnutrition Patient General Information Nutritional Screening Low Risk Diagnosis depression & SI Pertinent Medical Hx/Surgical Hx osteoarthritis, stiffness, hysterectomy Subjective Information Pt was walking in dining room at time of visit. Pt states she really likes the food and wants to thank the dietary department. PO intake is 75- 100% per EMR. Current Diet Order/ Nutrition Support regular Patient / S.O Can Pertinent Medications Vitamin D Pertinent Labs 06/30 Cl 109, BUN 26 Nutritional Hx/Data Height 1.52 m Height (Calculated Centimeters) 152.4 Current Weight (lbs) 68.039 kg Weight (Calculated Kilograms) 68.0 Weight (Calculated Grams) 93856.9 [place] Body Weight 100 Body Mass Index (BMI) 29.2 Weight Status Overweight GI Symptoms GI Symptoms None Last BM 1/2 Difficult in: None Food Allergies No Skin Integrity/Comment: intact, gema 21 Current %PO Good (75-100%) Estimated Nutritional Goals BEE in Kcals: Using Current wt Calories/Kcals/Kg 23-27 Kcals Calculated 9419-3182 Protein: Using Current wt Protein g/k.8-1 Protein Calculated 54-68 Fluid: ml 7689-5221 (1ml/kcal) Nutritional Problem No current Nutrition Prob Problem N/A Malnutrition Alert Is there a minimum of two criteria No selected? Query Text:Check all the applicable criteria. A minimum of two criteria are recommended for diagnosis of either severe or non-severe malnutrition. Malnutrition Related to Morbid Obesity Malnutrition related to morbid obesity No Intervention/Recommendation Comments 1. Continue with regular diet as ordered. 2. Monitor PO intake, wt, labs and skin integrity 3. F/U as low risk in 7 days Expected Outcomes/Goals Expected Outcomes/Goals Goal: PO intake to meet at least 75% of nutritional needs . Reviewed by Marika Harrison RD
--- NOTE | 2018-07-08 23:24 | Progress Notes ---
DATE: 07/08/2018 Case was discussed with staff of the patient, reviewed records. The patient continues to be delusional, depressed. She continues to write me things from the Bible and she thinks it is a secret that she wants to tell me. She is on the Abilify 5 mg a day as well as Zoloft 50 mg a day. We are trying to get her go to a rehabilitation center. Her lab work showed her CBC with low lymphocyte, high eosinophil, the rest within normal range. Chemistry panel with high BUN, the rest within normal range. TSH within normal range. No side effects with the medication, no sedation, no nausea, no extrapyramidal symptoms. We will continue outpatient group therapy, milieu therapy, and adjust medications. JOB# [id number]
--- NOTE | 2018-07-09 08:49 | General Progress Note ---
Subjective - Review of Systems Service Date: 07/09/18 Subjective: I am fine Objective - Results Result Diagrams: 06/30/18 06:05 06/30/18 06:05 Recent Labs: Laboratory Last Values WBC 9.9 Th/cmm (4.8-10.8) 06/30/18 06:05 RBC 4.66 Mil/cmm (3.80-5.20) 06/30/18 06:05 Hgb 14.3 gm/dL (12-16) 06/30/18 06:05 Hct 41.9 % (41.0-60) 06/30/18 06:05 MCV 89.9 fl (81-100) 06/30/18 06:05 MCH 30.7 pg (27.0-31.0) 06/30/18 06:05 MCHC Differential 34.1 pg (28.0-36.0) 06/30/18 06:05 RDW 12.7 % (11.5-20.0) 06/30/18 06:05 Plt Count 313 Th/cmm (150-400) 06/30/18 06:05 MPV 7.6 fl 06/30/18 06:05 Neutrophils % 70.6 % (40.0-80.0) 06/30/18 06:05 Lymphocytes % 17.5 % (20.0-50.0) L 06/30/18 06:05 Monocytes % 5.7 % (2.0-10.0) 06/30/18 06:05 Eosinophils % 5.7 % (0.0-5.0) H 06/30/18 06:05 Basophils % 0.5 % (0.0-2.0) 06/30/18 06:05 Sodium 142 mEq/L (136-145) 06/30/18 06:05 Potassium 4.0 mEq/L (3.5-5.1) 06/30/18 06:05 Chloride 109 mEq/L (98-107) H 06/30/18 06:05 Carbon Dioxide 25.4 mEq/L (21.0-31.0) 06/30/18 06:05 Anion Gap 11.6 (7.0-16.0) 06/30/18 06:05 BUN 26 mg/dL (7-25) H 06/30/18 06:05 Creatinine 0.8 mg/dL (0.6-1.2) 06/30/18 06:05 Est GFR ( Amer) > 60.0 ml/min (>90) 06/30/18 06:05 Est GFR (Non-Af Amer) > 60.0 ml/min 06/30/18 06:05 BUN/Creatinine Ratio 32.5 06/30/18 06:05 Glucose 95 mg/dL (70-105) 06/30/18 06:05 POC Glucose 105 MG/DL (70 - 105) 06/29/18 06:28 Calcium 10.2 mg/dL (8.6-10.3) 06/30/18 06:05 Total Bilirubin 0.5 mg/dL (0.3-1.0) 06/30/18 06:05 AST 16 U/L (13-39) 06/30/18 06:05 ALT 14 U/L (7-52) 06/30/18 06:05 Alkaline Phosphatase 80 U/L (34-104) 06/30/18 06:05 Total Protein 6.8 gm/dL (6.0-8.3) 06/30/18 06:05 Albumin 3.9 gm/dL (3.7-5.3) 06/30/18 06:05 Globulin 2.9 gm/dL 06/30/18 06:05 Albumin/Globulin Ratio 1.3 (1.0-1.8) 06/30/18 06:05 TSH 1.05 uIU/ml (0.34-5.60) 06/30/18 06:05 - Physical Exam Vitals and I&O: Vital Signs Temp 97.8 F 07/09/18 06:22 Pulse 57 07/09/18 06:22 Resp 18 07/09/18 06:22 BP 103/50 07/09/18 06:22 Pulse Ox 97 07/09/18 06:22 Intake & Output 07/08/18 07/09/18 07/09/18 18:59 06:59 18:59 Intake Total 240 Balance 240 Intake: Oral 240 Other: # Voids 2 2 # Bowel Movements 1 Active Medications: Current Medications Al Hydrox/Mg Hydrox/Simethicone (Maalox) 30 ml PO Q4HR PRN PRN Reason: GI DISTRESS Stop: 08/28/18 02:40 Aripiprazole (Abilify) 10 mg PO DAILY [facility]; Protocol Stop: 09/07/18 08:59 Aspirin (Ecotrin) 81 mg PO DAILY [facility] Stop: 08/28/18 08:59 Last Admin: 07/08/18 08:50 Dose: 81 mg Hydroxyzine Pamoate (Vistaril) 25 mg PO QID PRN; Protocol PRN Reason: Anxiety Stop: 08/28/18 02:46 Last Admin: 07/08/18 20:40 Dose: 25 mg Ibuprofen (Motrin) 800 mg PO BID [facility] Stop: 08/28/18 08:59 Last Admin: 07/08/18 18:40 Dose: Not Given Magnesium Hydroxide (Milk Of Magnesia) 30 ml PO HS PRN PRN Reason: Constipation Sertraline HCl (Zoloft) 50 mg PO DAILY [facility]; Protocol Stop: 08/28/18 08:59 Last Admin: 07/08/18 08:50 Dose: 50 mg Simvastatin (Zocor) 40 mg PO HS [facility]; Protocol Stop: 08/28/18 20:59 Last Admin: 07/08/18 20:39 Dose: 40 mg Vitamin D (Vitamin D) 400 iu PO DAILY [facility] Stop: 08/28/18 08:59 Last Admin: 07/08/18 08:50 Dose: 400 iu Zolpidem Tartrate (Ambien) 5 mg PO HS PRN PRN Reason: Insomnia Stop: 08/28/18 02:59 Last Admin: 07/08/18 20:39 Dose: 5 mg General: Alert, No acute distress HEENT: Atraumatic Neck: Supple Cardiovascular: Regular rate Abdomen: Bowel sounds, Soft Extremities: Other (No edema) Neurological: Normal gait Skin: Other (Warm and dry) Psych/Mental Status: Mental status NL Assessment/Plan - Assessment Assessment: Patient is awake, calm in no acute distress. Dx: suicidal ideation, Osteoarthritis. - Plan Plan: Patient is under Psychiatric care. Will continue with home meds. Nutritional Asmnt/Malnutr-PDOC - Dietary Evaluation Malnutrition Findings (Please click <Entered> for more info): Nutritional Asmnt/Malnutrition Start: 07/05/18 13: 17 Text: Status: Complete Freq: Protocol: Document 07/05/18 13:18 [email or web address] (Rec: 07/05/18 13:25 [email or web address]) Nutritional Asmnt/Malnutrition Patient General Information Nutritional Screening Low Risk Diagnosis depression & SI Pertinent Medical Hx/Surgical Hx osteoarthritis, stiffness, hysterectomy Subjective Information Pt was walking in dining room at time of visit. Pt states she really likes the food and wants to thank the dietary department. PO intake is 75- 100% per EMR. Current Diet Order/ Nutrition Support regular Patient / S.O Can Pertinent Medications Vitamin D Pertinent Labs 06/30 Cl 109, BUN 26 Nutritional Hx/Data Height 1.52 m Height (Calculated Centimeters) 152.4 Current Weight (lbs) 68.039 kg Weight (Calculated Kilograms) 68.0 Weight (Calculated Grams) 35863.9 [place] Body Weight 100 Body Mass Index (BMI) 29.2 Weight Status Overweight GI Symptoms GI Symptoms None Last BM 1/2 Difficult in: None Food Allergies No Skin Integrity/Comment: guygema 21 Current %PO Good (75-100%) Estimated Nutritional Goals BEE in Kcals: Using Current wt Calories/Kcals/Kg 23-27 Kcals Calculated 8560-0247 Protein: Using Current wt Protein g/k.8-1 Protein Calculated 54-68 Fluid: ml 1773-9334 (1ml/kcal) Nutritional Problem No current Nutrition Prob Problem N/A Malnutrition Alert Is there a minimum of two criteria No selected? Query Text:Check all the applicable criteria. A minimum of two criteria are recommended for diagnosis of either severe or non-severe malnutrition. Malnutrition Related to Morbid Obesity Malnutrition related to morbid obesity No Intervention/Recommendation Comments 1. Continue with regular diet as ordered. 2. Monitor PO intake, wt, labs and skin integrity 3. F/U as low risk in 7 days Expected Outcomes/Goals Expected Outcomes/Goals Goal: PO intake to meet at least 75% of nutritional needs . Reviewed by Marika Harrison RD
--- NOTE | 2018-07-09 21:41 | Progress Notes ---
DATE: 07/09/2018 SUBJECTIVE: Case was discussed with staff of the patient, reviewed records. The patient seems to be showing progress. Sleeping well, eating well. No suicidal ideation, no homicidal ideation. Still somewhat delusional. I increased her Abilify dose yesterday with no side effects, no sedation, no nausea and no extrapyramidal symptoms. We will continue outpatient group therapy, milieu therapy, adjust the medication as needed. JOB# [id number]
--- NOTE | 2018-07-10 11:51 | General Progress Note ---
Subjective - Review of Systems Service Date: 07/10/18 Subjective: I am fine Objective - Results Result Diagrams: 06/30/18 06:05 06/30/18 06:05 Recent Labs: Laboratory Last Values WBC 9.9 Th/cmm (4.8-10.8) 06/30/18 06:05 RBC 4.66 Mil/cmm (3.80-5.20) 06/30/18 06:05 Hgb 14.3 gm/dL (12-16) 06/30/18 06:05 Hct 41.9 % (41.0-60) 06/30/18 06:05 MCV 89.9 fl (81-100) 06/30/18 06:05 MCH 30.7 pg (27.0-31.0) 06/30/18 06:05 MCHC Differential 34.1 pg (28.0-36.0) 06/30/18 06:05 RDW 12.7 % (11.5-20.0) 06/30/18 06:05 Plt Count 313 Th/cmm (150-400) 06/30/18 06:05 MPV 7.6 fl 06/30/18 06:05 Neutrophils % 70.6 % (40.0-80.0) 06/30/18 06:05 Lymphocytes % 17.5 % (20.0-50.0) L 06/30/18 06:05 Monocytes % 5.7 % (2.0-10.0) 06/30/18 06:05 Eosinophils % 5.7 % (0.0-5.0) H 06/30/18 06:05 Basophils % 0.5 % (0.0-2.0) 06/30/18 06:05 Sodium 142 mEq/L (136-145) 06/30/18 06:05 Potassium 4.0 mEq/L (3.5-5.1) 06/30/18 06:05 Chloride 109 mEq/L (98-107) H 06/30/18 06:05 Carbon Dioxide 25.4 mEq/L (21.0-31.0) 06/30/18 06:05 Anion Gap 11.6 (7.0-16.0) 06/30/18 06:05 BUN 26 mg/dL (7-25) H 06/30/18 06:05 Creatinine 0.8 mg/dL (0.6-1.2) 06/30/18 06:05 Est GFR ( Amer) > 60.0 ml/min (>90) 06/30/18 06:05 Est GFR (Non-Af Amer) > 60.0 ml/min 06/30/18 06:05 BUN/Creatinine Ratio 32.5 06/30/18 06:05 Glucose 95 mg/dL (70-105) 06/30/18 06:05 POC Glucose 105 MG/DL (70 - 105) 06/29/18 06:28 Calcium 10.2 mg/dL (8.6-10.3) 06/30/18 06:05 Total Bilirubin 0.5 mg/dL (0.3-1.0) 06/30/18 06:05 AST 16 U/L (13-39) 06/30/18 06:05 ALT 14 U/L (7-52) 06/30/18 06:05 Alkaline Phosphatase 80 U/L (34-104) 06/30/18 06:05 Total Protein 6.8 gm/dL (6.0-8.3) 06/30/18 06:05 Albumin 3.9 gm/dL (3.7-5.3) 06/30/18 06:05 Globulin 2.9 gm/dL 06/30/18 06:05 Albumin/Globulin Ratio 1.3 (1.0-1.8) 06/30/18 06:05 TSH 1.05 uIU/ml (0.34-5.60) 06/30/18 06:05 - Physical Exam Vitals and I&O: Vital Signs Temp 97.2 F 07/10/18 06:09 Pulse 50 07/10/18 06:09 Resp 20 07/10/18 06:09 BP 103/59 07/10/18 06:09 Pulse Ox 95 07/10/18 06:09 Intake & Output 07/09/18 07/10/18 07/10/18 18:59 06:59 18:59 Intake Total 390 Balance 390 Intake: Oral 390 Other: # Voids 1 # Bowel Movements 0 Active Medications: Current Medications Al Hydrox/Mg Hydrox/Simethicone (Maalox) 30 ml PO Q4HR PRN PRN Reason: GI DISTRESS Stop: 08/28/18 02:40 Aripiprazole (Abilify) 10 mg PO DAILY [facility]; Protocol Stop: 09/07/18 08:59 Last Admin: 07/10/18 08:11 Dose: 10 mg Aspirin (Ecotrin) 81 mg PO DAILY [facility] Stop: 08/28/18 08:59 Last Admin: 07/10/18 08:10 Dose: 81 mg Hydroxyzine Pamoate (Vistaril) 25 mg PO QID PRN; Protocol PRN Reason: Anxiety Stop: 08/28/18 02:46 Last Admin: 07/09/18 16:00 Dose: 25 mg Ibuprofen (Motrin) 800 mg PO BID [facility] Stop: 08/28/18 08:59 Last Admin: 07/10/18 08:14 Dose: 800 mg Magnesium Hydroxide (Milk Of Magnesia) 30 ml PO HS PRN PRN Reason: Constipation Mupirocin (Bactroban Oint) 1 appl NS BID [facility] Stop: 07/14/18 17:01 Last Admin: 07/10/18 08:10 Dose: 1 appl Sertraline HCl (Zoloft) 50 mg PO DAILY [facility]; Protocol Stop: 08/28/18 08:59 Last Admin: 07/10/18 08:10 Dose: 50 mg Simvastatin (Zocor) 40 mg PO HS [facility]; Protocol Stop: 08/28/18 20:59 Last Admin: 07/09/18 21:25 Dose: 40 mg Vitamin D (Vitamin D) 400 iu PO DAILY [facility] Stop: 08/28/18 08:59 Last Admin: 07/10/18 08:10 Dose: 400 iu Zolpidem Tartrate (Ambien) 5 mg PO HS PRN PRN Reason: Insomnia Stop: 08/28/18 02:59 Last Admin: 07/09/18 21:25 Dose: 5 mg General: Alert, No acute distress HEENT: Atraumatic Neck: Supple Cardiovascular: Regular rate Abdomen: Bowel sounds, Soft Extremities: Other (No edema) Neurological: Normal gait Skin: Other (Warm and dry) Psych/Mental Status: Mental status NL Assessment/Plan - Assessment Assessment: Patient is awake, calm in no acute distress. Dx: suicidal ideation, Osteoarthritis. - Plan Plan: Patient is under Psychiatric care. Will continue with home meds. Nutritional Asmnt/Malnutr-PDOC - Dietary Evaluation Malnutrition Findings (Please click <Entered> for more info): Nutritional Asmnt/Malnutrition Start: 07/05/18 13: 17 Text: Status: Complete Freq: Protocol: Document 07/05/18 13:18 [email or web address] (Rec: 07/05/18 13:25 [email or web address]) Nutritional Asmnt/Malnutrition Patient General Information Nutritional Screening Low Risk Diagnosis depression & SI Pertinent Medical Hx/Surgical Hx osteoarthritis, stiffness, hysterectomy Subjective Information Pt was walking in dining room at time of visit. Pt states she really likes the food and wants to thank the dietary department. PO intake is 75- 100% per EMR. Current Diet Order/ Nutrition Support regular Patient / S.O Can Pertinent Medications Vitamin D Pertinent Labs 06/30 Cl 109, BUN 26 Nutritional Hx/Data Height 1.52 m Height (Calculated Centimeters) 152.4 Current Weight (lbs) 68.039 kg Weight (Calculated Kilograms) 68.0 Weight (Calculated Grams) 08767.9 [place] Body Weight 100 Body Mass Index (BMI) 29.2 Weight Status Overweight GI Symptoms GI Symptoms None Last BM 1/2 Difficult in: None Food Allergies No Skin Integrity/Comment: gema tovar 21 Current %PO Good (75-100%) Estimated Nutritional Goals BEE in Kcals: Using Current wt Calories/Kcals/Kg 23-27 Kcals Calculated 8152-5678 Protein: Using Current wt Protein g/k.8-1 Protein Calculated 54-68 Fluid: ml 6409-7794 (1ml/kcal) Nutritional Problem No current Nutrition Prob Problem N/A Malnutrition Alert Is there a minimum of two criteria No selected? Query Text:Check all the applicable criteria. A minimum of two criteria are recommended for diagnosis of either severe or non-severe malnutrition. Malnutrition Related to Morbid Obesity Malnutrition related to morbid obesity No Intervention/Recommendation Comments 1. Continue with regular diet as ordered. 2. Monitor PO intake, wt, labs and skin integrity 3. F/U as low risk in 7 days Expected Outcomes/Goals Expected Outcomes/Goals Goal: PO intake to meet at least 75% of nutritional needs . Reviewed by Marika Harrison RD
--- NOTE | 2018-07-10 11:58 | Discharge Summary ---
DATE OF DISCHARGE: 07/10/2018 IDENTIFYING INFORMATION: The patient is a 67-year-old female. CHIEF COMPLAINT: Suicidal. HISTORY PRESENT ILLNESS: The patient is a female feeling hopeless, desperate, tried to run into traffic, taken to [facility], also transferred here for ongoing nervousness, feeling on edge, and stating her mom a year ago. She has been feeling very lonely and upset, not [place] for safety, feeling suicidal. History of ____ at age 26 and also at age 36, has suicide attempt many years ago, around age 36. COURSE IN THE HOSPITAL: The patient was started on Abilify, increased the dose to 10 mg because of her paranoia and delusion and also Zoloft was increased to 50 mg daily. She is continued on simvastatin and hydroxyzine. The patient progressively got better. We will manage to find a place at [facility], as she improved, she was sleeping well, eating well, not acting in any way psychotic or depressed or no longer suicidal with a safe place to go to. We felt she could be discharged to a lesser level of care. FINAL DIAGNOSES: Major depression, recurrent, severe with some psychosis. MEDICAL DIAGNOSES: As per medical doctor. The patient will be going to [facility]. I follow up with the patient there and the primary care physician. EXPECTED OUTCOME: Stable if the patient complies with the above. [facility]# [id number]
== END 2018-07-10 17:26 | DRG 885 ==
LOC: GERO 22:36
PROVIDERS: ADMIT Psychiatry & Neurology Psychiatry; ATTEND Psychiatry & Neurology Psychiatry
DX: F33.3 Major depressive disorder, recurrent, severe with psychotic symptoms (principal); R45.851 Suicidal ideations; F41.9 Anxiety disorder, unspecified; M19.90 Unspecified osteoarthritis, unspecified site; Z90.710 Acquired absence of both cervix and uterus; Z88.2 Allergy status to sulfonamides; Z88.8 Allergy status to other drugs, medicaments and biological substances
CPT/HCPCS: 36415-UA; 80053-TC; 82948-90; 84443-TC; 85025-TC; Q0177

== ENCOUNTER 2018-11-04 18:14 | Inpatient (IN) | payer MEDICARE, MEDICAID ==
--- NOTE | 2018-11-04 18:57 | ED Physician Chart ---
ED Chief Complaint/HPI - Patient Information Date Seen:: 11/04/18 Time Seen:: 06:25 Chief Complaint:: Fatigue for 2 days. History of Present Illness:: Brought in by ambulance from nursing facility because pt has had easy fatigability for 2 days. No chest pain, dyspnea, or lightheadedness. Pt was noticed to have bradycardia. Allergies:: Allergies Allergy/AdvReac Type Severity Reaction Status Date / Time hydrocodone Allergy Verified 06/29/18 02:20 lorazepam Allergy Verified 06/29/18 02:20 sulfamethoxazole Allergy Verified 06/29/18 02:20 [From Bactrim] trimethoprim [From Bactrim] Allergy Verified 06/29/18 02:20 Vitals:: Vital Signs - 8 hr 11/04/18 18:33 Temp 98.5 F HR 53 RR 16 BP 139/53 O2 Sat % 100 Historian:: Patient Family MD/PCP:: Dr. Espinoza LMP:: Postmenopausal. Review:: Nurse's Note Reviewed, Transfer documents Reviewed ED Review of Systems - Review of Systems General/Constitutional: No fever, No chills, No weight loss, No weakness, No edema, No loss of appetite Skin: No skin lesions, No rash, No bruising Head: No headache, No light-headedness Eyes: No loss of vision, No pain, No diplopia ENT: No earache, No nasal drainage, No sore throat Neck: No neck pain, No swelling, No thyromegaly, No stiffness, No mass noted Cardio Vascular: No chest pain, No palpitations, No PND, No orthopnea, No edema Pulmonary: No SOB, No cough, No wheezing GI: No nausea, No vomiting, No diarrhea, No pain, No melena, No hematochezia G/U: No dysuria, No frequency, No hematuria [employer]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 Surgical History: Hysterectomy (in 1999/), other (tonsillectomy age 6) Psychiatricy History: Depression Medication: Reviewed Family Medical History - Family Member Mother Sister History Unknown: Yes ED Physical Exam - Physical Examination General/Constitutional: Awake, Well-developed, well-nourished, Alert, No distress, GCS 15, Non-toxic appearing Other Gen/Cons comments:: Breathes comfortably, speaks clearly, and interacts appropriately. Head: Atraumatic Eyes: Lids, conjuctiva normal, PERRL, EOMI Skin: Nl inspection, No skin lesions, Well hydrated, No lymphadenopathy ENMT: External ears, nose nl, Nasal exam nl, Oropharynx nl Neck: Nontender, Full ROM w/o pain, No JVD, No nuchal rigidity, No mass Other Neck comments:: No thyromegaly or nodularity. Respiratory: Nl effort/Exclusion, Clear to Auscultation, No Wheeze/Rhonchi/Rales Cardio Vascular: No murmur, gallop, rubs (Regular rhythm with bradycardia. HR 50.) GI: No tenderness/rebounding/guarding, No organomegaly, Normal BS's, Nondistended, No mass/bruits Other GI comments:: Abdomen is obese but soft. There is a well healed midline longitudinal surgical scar at lower abdomen. : No CVA tenderness Extremities: No tenderness or effusion, Full ROM, No edema Neuro/Psych: Alert/oriented (oriented x 3), Judgement/insight normal, Mood normal, No focal deficits Misc: Normal back, No paraspinal tenderness ED Labs/Radiology/EKG Results - Lab Results Results: Laboratory Results - last 24 hr 11/04/18 11/04/18 11/04/18 18:50 19:00 19:00 WBC 9.3 RBC 4.51 Hgb 13.4 Hct 40.8 L MCV 90.5 MCH 29.7 MCHC Differential 32.8 RDW 12.7 Plt Count 313 MPV 7.4 Neutrophils % 62.5 Lymphocytes % 27.3 Monocytes % 5.8 Eosinophils % 3.9 Basophils % 0.5 PT 10.4 INR 1.00 PTT (Actin FS) 26.7 Sodium Potassium Chloride Carbon Dioxide Anion Gap BUN Creatinine Est GFR ( Amer) Est GFR (Non-Af Amer) BUN/Creatinine Ratio Glucose Calcium Total Bilirubin AST ALT Alkaline Phosphatase Troponin I Total Protein Albumin Globulin Albumin/Globulin Ratio Urine Source CLEAN C Urine Color YELLOW Urine Clarity CLEAR Urine pH 5.5 Ur Specific [place] 1.020 Urine Protein NEGATIVE Urine Glucose (UA) NEGATIVE Urine Ketones NEGATIVE Urine Blood NEGATIVE Urine Nitrate NEGATIVE Urine Bilirubin NEGATIVE Urine Urobilinogen 0.2 Ur Leukocyte Esterase MODERATE H Urine RBC 0-2 Urine WBC 6-10 H Ur Epithelial Cells FEW Urine Bacteria FEW 11/04/18 11/04/18 19:00 19:00 WBC RBC Hgb Hct MCV MCH MCHC Differential RDW Plt Count MPV Neutrophils % Lymphocytes % Monocytes % Eosinophils % Basophils % PT INR PTT (Actin FS) Sodium 139 Potassium 4.1 Chloride 106 Carbon Dioxide 26.5 Anion Gap 10.6 BUN 23 Creatinine 1.0 Est GFR ( Amer) > 60.0 Est GFR (Non-Af Amer) 58.8 BUN/Creatinine Ratio 23.0 Glucose 121 H Calcium 10.2 Total Bilirubin 0.2 L AST 16 ALT 15 Alkaline Phosphatase 95 Troponin I < 0.01 L Total Protein 7.1 Albumin 4.1 Globulin 3.0 Albumin/Globulin Ratio 1.4 Urine Source Urine Color Urine Clarity Urine pH Ur Specific [place] Urine Protein Urine Glucose (UA) Urine Ketones Urine Blood Urine Nitrate Urine Bilirubin Urine Urobilinogen Ur Leukocyte Esterase Urine RBC Urine WBC Ur Epithelial Cells Urine Bacteria Pending lab results to be followed by admitting attending physician: TSH, urine culture. - EKG Interpretations EKG Time:: 19:19 Rate & Rhythm: Sinus bradycardia with VR 46. Nonspecific IVCD with LAD. LVH. Comments:: NSSTT changes. ED Septic Shock - . Is Septic Shock (SBP<90, OR Lactate>4 mmol\L) present?: No - <6hrs of presentation: Vital Signs: Vital Signs - 8 hr 11/04/18 18:33 Temp 98.5 F HR 53 RR 16 BP 139/53 O2 Sat % 100 ED Reassessment (Disposition) - Reassessment Reassessment:: 1950 Pt remains stable. EKG, CXR, and lab findings have been reviewed with pt. Management plan has been discussed. Case was discussed with Dr. Espinoza with pertinent info reviewed. Pt is to be admitted to [facility] [place] under his care. - Diagnosis Diagnosis:: Bradycardia. Early urinary tract infection. - Patient Disposition Admitted to:: Telemetry Admitting Medical Physician:: Neelam Espinoza Time:: 19:50 Condition at Disposition:: Stable
[2018-11-04 19:21] LABS: % BASOPHILS 0.5 % (0.0-2.0); % EOSINOPHILS 3.9 % (0.0-5.0); % LYMPHOCYTES 27.3 % (20.0-50.0); % MONOCYTES 5.8 % (2.0-10.0); % NEUTROPHILS 62.5 % (40.0-80.0); EOSINOPHILE ABSOLUTE 0.4 Th/cmm (0.1-0.4); HEMATOCRIT 40.8 % (41.0-60); HEMOGLOBIN 13.4 gm/dL (12-16); LYMPHOCYTE ABSOLUTE 2.5 Th/cmm (1.5-3.0); MEAN CELL VOLUME 90.5 fl (81-100); MEAN CORPUSCULAR HEMOGLOBIN 29.7 pg (27.0-31.0); MEAN CORPUSCULAR HGB CONC 32.8 pg (28.0-36.0); MEAN PLATELET VOLUME 7.4 fl; MONOCYTE ABSOLUTE 0.5 Th/cmm (0.3-1.0); NEUTROPHILE ABSOLUTE 5.9 Th/cmm (1.8-8.0); PLATELET COUNT 313 Th/cmm (150-400); RED BLOOD COUNT 4.51 Mil/cmm (3.80-5.20); RED CELL DISTRIBUTION WIDTH 12.7 % (11.5-20.0); WHITE BLOOD COUNT 9.3 Th/cmm (4.8-10.8)
[2018-11-04 19:27] LABS: URINE SOURCE CLEAN C
[2018-11-04 19:30] LABS: URINE BILIRUBIN NEGATIVE (NEGATIVE); URINE BLOOD NEGATIVE (NEGATIVE); URINE GLUCOSE (UA) NEGATIVE (NEGATIVE); URINE KETONE NEGATIVE (NEGATIVE); URINE LEUKOCYTE ESTERASE MODERATE (NEGATIVE); URINE NITRATE NEGATIVE (NEGATIVE); URINE PH 5.5 (4.6 - 8.0); URINE PROTEIN NEGATIVE (NEGATIVE); URINE UROBILINOGEN 0.2 E.U./dL (0.2 - 1.0)
[2018-11-04 19:35] LABS: URINE CLARITY CLEAR (CLEAR); URINE COLOR YELLOW; URINE MICROSCOPIC INDICATED? YES
[2018-11-04 19:37] LABS: ALB/GLOB RATIO 1.4 (1.0-1.8); ALBUMIN 4.1 gm/dL (3.7-5.3); ALKALINE PHOSPHATASE 95 U/L (34-104); ANION GAP 10.6 (7.0-16.0); BILIRUBIN,TOTAL 0.2 mg/dL (0.3-1.0); BUN - UREA NITROGEN 23 mg/dL (7-25); CALCIUM SERUM 10.2 mg/dL (8.6-10.3); CARBON DIOXIDE 26.5 mEq/L (21.0-31.0); CHLORIDE 106 mEq/L (98-107); GFR AFRICAN-AMERICAN > 60.0 ml/min (>90); GFR NON AFRICAN-AMERICAN 58.8 ml/min; GLUCOSE 121 mg/dL (70-105); POTASSIUM SERUM 4.1 mEq/L (3.5-5.1); SGOT 16 U/L (13-39); SGPT/ALT 15 U/L (7-52); SODIUM SERUM 139 mEq/L (136-145); TOTAL PROTEIN,SERUM 7.1 gm/dL (6.0-8.3)
[2018-11-04 19:37] LABS: URINE BACTERIA FEW /hpf (NONE SEEN); URINE EPITHELIAL CELLS FEW /lpf (FEW); URINE RBC 0-2 /hpf (0-5)
[2018-11-04 19:38] LABS: PROTHROMBIN TIME (TEST) 10.4 SECONDS (9.5-11.5)
[2018-11-04 21:31] VITALS: BP 125/51
[2018-11-04] MEDS ORDERED: Levofloxacin 500mg/100mL 500 MG/100 ML BAG IV ONE (22:45)
[2018-11-04] MEDS: Levofloxacin 500mg/100mL 500 MG/100 ML BAG IV SCH (22:51)
[2018-11-04] MEDS ORDERED: Non-Formulary Item 1 EA (Acetaminophen [Tylenol] 650 MG) PO PRN (23:43)
[2018-11-04] MEDS ORDERED: Maalox 30 mL Cup PO PRN (23:43)
[2018-11-05 04:28] LABS: HEMATOCRIT 38.9 % (41.0-60); RED BLOOD COUNT 4.32 Mil/cmm (3.80-5.20)
[2018-11-05 04:38] LABS: HEMOGLOBIN 12.8 gm/dL (12-16); MEAN CORPUSCULAR HEMOGLOBIN 29.7 pg (27.0-31.0); MEAN PLATELET VOLUME 7.8 fl; PLATELET COUNT 292 Th/cmm (150-400)
[2018-11-05 04:45] LABS: WHITE BLOOD COUNT 15.8 Th/cmm (4.8-10.8)
[2018-11-05 05:05] LABS: ALB/GLOB RATIO 1.3 (1.0-1.8); ALBUMIN 3.9 gm/dL (3.7-5.3); ALKALINE PHOSPHATASE 91 U/L (34-104); ANION GAP 13.1 (7.0-16.0); BILIRUBIN,TOTAL 0.3 mg/dL (0.3-1.0); BUN - UREA NITROGEN 23 mg/dL (7-25); CALCIUM SERUM 9.9 mg/dL (8.6-10.3); CARBON DIOXIDE 24.1 mEq/L (21.0-31.0); CHLORIDE 107 mEq/L (98-107); CREATININE - SERUM 0.9 mg/dL (0.6-1.2); GFR AFRICAN-AMERICAN > 60.0 ml/min (>90); GFR NON AFRICAN-AMERICAN > 60.0 ml/min; GLUCOSE 114 mg/dL (70-105); POTASSIUM SERUM 4.2 mEq/L (3.5-5.1); SGOT 15 U/L (13-39); SGPT/ALT 13 U/L (7-52); SODIUM SERUM 140 mEq/L (136-145); TOTAL PROTEIN,SERUM 6.8 gm/dL (6.0-8.3)
[2018-11-05 08:08] LABS: BAND NEUTROPHILE 0 % (0-10); EOSINOPHIL 2 % (0-5); LYMPHOCYTE 6 % (20-50); MONOCYTE 4 % (2-10); NEUTROPHILS 88 % (40-80)
[2018-11-05 08:09] LABS: BASOPHIL 0 % (0-3)
--- NOTE | 2018-11-05 08:41 | Diagnostic Imaging Report ---
CHEST X-RAY: AP view INDICATION: pain COMPARISON: None FINDINGS: There is no focal consolidation or pleural effusions The heart is at the upper limits of normal in size. Mildly tortuous aorta is noted. Degenerative changes of the spine are noted. IMPRESSION: No focal airspace consolidation identified.
[2018-11-05] MEDS ORDERED: Levofloxacin 500mg/100mL 500 MG/100 ML BAG IV SCH (09:00)
[2018-11-05] MEDS: Levofloxacin 500mg/100mL 500 MG/100 ML BAG IV SCH (22:19)
--- NOTE | 2018-11-05 23:04 | Consultation ---
DATE OF CONSULTATION: 11/05/2018 IDENTIFYING INFORMATION: The patient is a 68-year-old female. HISTORY OF PRESENT ILLNESS: The patient is admitted because of bradycardia. The patient herself is not a very good historian, though she is able to remember me; however, she could not remember her age; first she told me she was 54, then she told me she is 68; in reality, she is 68 years of age. The patient came from [facility] where I have referred her; she was at [facility] a few months ago. The patient has easy fatigability. No chest pain. She is lightheaded. I have been seeing this patient for a while and is being treated for depression and dementia. The patient is diagnosed with bradycardia and urinary tract infection. She said she is not sleeping well, but she is eating well. She denies any current intent to harm herself or anybody. Denies auditory or visual hallucinations or paranoia. She is on Abilify and Zoloft. PAST PSYCHIATRIC HISTORY: The patient has a history of prior hospitalizations with 2 prior suicidal attempts, she ran into traffic, and a history of 3 prior hospitalizations. MEDICAL HISTORY: Hypothyroidism, urinary tract infection, and bradycardia. ALLERGIES: THE PATIENT IS ALLERGIC TO HYDROCODONE, LORAZEPAM, SULFAMETHIZOLE, AND TRIMETHOPRIM. FAMILY AND SOCIAL HISTORY: The patient reports that she has been single, never , no children. She has an Associate of Science degree. She used to work as a nurse. She reports she has no family support and no family psychiatric disorder. She came from [facility]. Denies any substance abuse. She reports she never had substance abuse problem. No history of abuse. No family psychiatric disorder. MENTAL STATUS EXAMINATION: The patient is appropriately dressed and groomed. She was alert. She was able to tell me the date. She knew she is here because of bradycardia. She reported that she is not sleeping well. Her appetite is okay. She denies any auditory or visual hallucinations or paranoia. She reports she never hear voices. No intent to harm herself. She seems to have average intelligence. Long-term memory is poor, cannot remember her age. Recent memory is good for events that led to her coming here. She denies any intent to harm herself or anyone. Denies any auditory or visual hallucinations or paranoia. Insight about her illness is fair. She ____ judgment is fair. ASSESSMENT: 1. Major depression, recurrent, severe, no psychosis, dementia. 2. Medical diagnoses as per medical doctor. PLAN: The patient is recommended to continue on Abilify and Zoloft. Thank you very much for allowing me to participate in the care of this most interesting lady. JOB# [id number]
[2018-11-06 07:21] LABS: % BASOPHILS 0.3 % (0.0-2.0); % EOSINOPHILS 4.2 % (0.0-5.0); % MONOCYTES 5.5 % (2.0-10.0); EOSINOPHILE ABSOLUTE 0.5 Th/cmm (0.1-0.4); HEMATOCRIT 38.7 % (41.0-60); LYMPHOCYTE ABSOLUTE 2.2 Th/cmm (1.5-3.0); MEAN CORPUSCULAR HEMOGLOBIN 30.2 pg (27.0-31.0); MEAN CORPUSCULAR HGB CONC 33.5 pg (28.0-36.0); MEAN PLATELET VOLUME 8.2 fl; MONOCYTE ABSOLUTE 0.6 Th/cmm (0.3-1.0); NEUTROPHILE ABSOLUTE 8.1 Th/cmm (1.8-8.0); PLATELET COUNT 285 Th/cmm (150-400); RED BLOOD COUNT 4.29 Mil/cmm (3.80-5.20); RED CELL DISTRIBUTION WIDTH 12.8 % (11.5-20.0); WHITE BLOOD COUNT 11.4 Th/cmm (4.8-10.8)
[2018-11-06 07:29] LABS: ANION GAP 13.7 (7.0-16.0); BUN - UREA NITROGEN 25 mg/dL (7-25); CARBON DIOXIDE 22.3 mEq/L (21.0-31.0); CHLORIDE 108 mEq/L (98-107); CREATININE - SERUM 0.9 mg/dL (0.6-1.2); GFR AFRICAN-AMERICAN > 60.0 ml/min (>90); GFR NON AFRICAN-AMERICAN > 60.0 ml/min; GLUCOSE 104 mg/dL (70-105); SODIUM SERUM 140 mEq/L (136-145)
--- NOTE | 2018-11-06 16:13 | Cardiology ---
11/05/[address] Espinoza. PROCEDURE: Echocardiogram. M-MODE ECHOCARDIOGRAM: Mitral valve, anterior leaflet of mitral valve shows normal excursion, EF velocity. Posterior leaflet of the mitral valve shows normal excursion. Left ventricular posterior wall showed normal thickness, excursion. Interventricular septum showed normal thickness, excursion. Ejection fraction 66%. Left atrium normal. Aortic root shows normal dimension, normal excursion of aortic leaflets. CONCLUSION: Hypertrophy of the left ventricle, ejection fraction 66%. 2D ECHO: Long axis view showed normal sized left ventricle with normal wall motion. Mitral valve shows normal excursion. Left atrium normal. Aortic root shows normal dimension, normal excursion of aortic leaflets. Short axis view of mitral valve normal. Short axis view of aortic valve normal. Apical four chamber view normal sized left ventricle, left atrium, right ventricle, right atrium, tricuspid, and mitral valve. Ejection fraction 66%. CONCLUSION: Hypertrophy of the left ventricle, ejection fraction 66%. Doppler study shows mild mitral regurgitation, mild pulmonary regurgitation, moderate tricuspid regurgitation, right ventricular systolic pressure 32 mmHg. [facility]# [id number]
[2018-11-06] MEDS ORDERED: Magnesium Hydroxide (MOM) 30 mL UDC PO PRN (19:27)
--- NOTE | 2018-11-06 20:18 | History & Physical ---
ADMIT DATE: 11/04/2018 HISTORY OF PRESENT ILLNESS: The patient came to the Emergency Room from [facility] because the patient has been easily fatigued and complains of severe weakness, dizziness, and complains of no chest pain and the patient also feels dizzy. In the Emergency Room, she was found to have a sinus bradycardia in the 50s. The patient had no fever, no rash, no swelling, no thyromegaly, no abnormal bleeding. [employer] complaint of weakness and dizziness. The patient does have a history of hyperlipidemia and history of hypertension and the patient had a hysterectomy in the past. PHYSICAL EXAMINATION: GENERAL: The patient awake, alert somewhat, complaining of severe weakness. HEAD: Normal. ENT: Normal. LUNGS: Bilateral clear. CARDIOVASCULAR SYSTEM: S1, S2 heard. ABDOMEN: Soft. Bowel sounds are heard. CENTRAL NERVOUS SYSTEM: Grossly normal. LABORATORY DATA: White count was 9.3, hemoglobin 13.4. Urinalysis was normal. Sodium was 139. BUN and creatinine were normal. EKG showed nonspecific changes as well as IVCD, intraventricular conduction delay as well as left anterior disease and LVH, presented with bradycardia. DIAGNOSES: Sinus bradycardia and dizziness. EKG changes, rule out MN, early urinary infection, status post hysterectomy, urinary tract infection. PLAN: The patient is being admitted and I will follow the patient and also have Dr. Gerard Hyman see the patient. I will follow the patient. JOB# [id number]
--- NOTE | 2018-11-06 20:38 | Internal Medicine Prog Note ---
Internal Medicine Subjective - Subjective Service Date: 11/06/18 Patient seen and examined:: with staff Patient is:: awake, talking Patient Complaints of:: other (severe weakness.) Per staff patient has:: no adverse event, no episodes of fall Internal Medicine Objective - Results Result Diagrams: 11/06/18 05:30 11/06/18 05:30 Recent Labs: Laboratory Last Values WBC 11.4 Th/cmm (4.8-10.8) H 11/06/18 05:30 RBC 4.29 Mil/cmm (3.80-5.20) 11/06/18 05:30 Hgb 13.0 gm/dL (12-16) 11/06/18 05:30 Hct 38.7 % (41.0-60) L 11/06/18 05:30 MCV 90.0 fl (81-100) 11/06/18 05:30 MCH 30.2 pg (27.0-31.0) 11/06/18 05:30 MCHC Differential 33.5 pg (28.0-36.0) 11/06/18 05:30 RDW 12.8 % (11.5-20.0) 11/06/18 05:30 Plt Count 285 Th/cmm (150-400) 11/06/18 05:30 MPV 8.2 fl 11/06/18 05:30 Add Manual Diff YES 11/05/18 04:00 Neutrophils % 71.0 % (40.0-80.0) 11/06/18 05:30 Band Neutrophils % 0 % (0-10) 11/05/18 04:00 Lymphocytes % 19.0 % (20.0-50.0) L 11/06/18 05:30 Monocytes % 5.5 % (2.0-10.0) 11/06/18 05:30 Eosinophils % 4.2 % (0.0-5.0) 11/06/18 05:30 Basophils % 0.3 % (0.0-2.0) 11/06/18 05:30 Neutrophils (Manual) 88 % (40-80) H 11/05/18 04:00 Lymphocytes 6 % (20-50) L 11/05/18 04:00 Monocytes 4 % (2-10) 11/05/18 04:00 Eosinophils 2 % (0-5) 11/05/18 04:00 Basophils 0 % (0-3) 11/05/18 04:00 PT 10.4 SECONDS (9.5-11.5) 11/04/18 19:00 INR 1.00 (0.5-1.4) 11/04/18 19:00 PTT (Actin FS) 26.7 SECONDS (26.0-38.0) 11/04/18 19:00 Sodium 140 mEq/L (136-145) 11/06/18 05:30 Potassium 4.0 mEq/L (3.5-5.1) 11/06/18 05:30 Chloride 108 mEq/L (98-107) H 11/06/18 05:30 Carbon Dioxide 22.3 mEq/L (21.0-31.0) 11/06/18 05:30 Anion Gap 13.7 (7.0-16.0) 11/06/18 05:30 BUN 25 mg/dL (7-25) 11/06/18 05:30 Creatinine 0.9 mg/dL (0.6-1.2) 11/06/18 05:30 Est GFR ( Amer) > 60.0 ml/min (>90) 11/06/18 05:30 Est GFR (Non-Af Amer) > 60.0 ml/min 11/06/18 05:30 BUN/Creatinine Ratio 27.8 11/06/18 05:30 Glucose 104 mg/dL (70-105) 11/06/18 05:30 Calcium 10.0 mg/dL (8.6-10.3) 11/06/18 05:30 Total Bilirubin 0.3 mg/dL (0.3-1.0) 11/05/18 04:00 AST 15 U/L (13-39) 11/05/18 04:00 ALT 13 U/L (7-52) 11/05/18 04:00 Alkaline Phosphatase 91 U/L (34-104) 11/05/18 04:00 Troponin I < 0.01 ng/mL (0.01-0.05) L 11/05/18 11:56 Total Protein 6.8 gm/dL (6.0-8.3) 11/05/18 04:00 Albumin 3.9 gm/dL (3.7-5.3) 11/05/18 04:00 Globulin 2.9 gm/dL 11/05/18 04:00 Albumin/Globulin Ratio 1.3 (1.0-1.8) 11/05/18 04:00 TSH 1.82 uIU/ml (0.34-5.60) 11/04/18 19:00 Urine Source CLEAN C 11/04/18 18:50 Urine Color YELLOW 11/04/18 18:50 Urine Clarity CLEAR (CLEAR) 11/04/18 18:50 Urine pH 5.5 (4.6 - 8.0) 11/04/18 18:50 Ur Specific [place] 1.020 (1.005-1.030) 11/04/18 18:50 Urine Protein NEGATIVE mg/dL (NEGATIVE) 11/04/18 18:50 Urine Glucose (UA) NEGATIVE mg/dL (NEGATIVE) 11/04/18 18:50 Urine Ketones NEGATIVE mg/dL (NEGATIVE) 11/04/18 18:50 Urine Blood NEGATIVE (NEGATIVE) 11/04/18 18:50 Urine Nitrate NEGATIVE (NEGATIVE) 11/04/18 18:50 Urine Bilirubin NEGATIVE (NEGATIVE) 11/04/18 18:50 Urine Urobilinogen 0.2 E.U./dL (0.2 - 1.0) 11/04/18 18:50 Ur Leukocyte Esterase MODERATE (NEGATIVE) H 11/04/18 18:50 Urine RBC 0-2 /hpf (0-5) 11/04/18 18:50 Urine WBC 6-10 /hpf (0-5) H 11/04/18 18:50 Ur Epithelial Cells FEW /lpf (FEW) 11/04/18 18:50 Urine Bacteria FEW /hpf (NONE SEEN) 11/04/18 18:50 - Physical Exam Vitals and I&O: Vital Signs Temp 97.4 F 11/06/18 19:49 Pulse 54 11/06/18 19:49 Resp 18 11/06/18 19:49 BP 122/68 11/06/18 19:49 Pulse Ox 97 11/06/18 19:49 Intake & Output 11/06/18 11/06/18 11/07/18 06:59 18:59 06:59 Intake Total 1200 Balance 1200 Weight (lbs) 77.111 kg Intake: Oral 1200 Other: # Voids 3 # Bowel Movements 0 Weight Source Bedscale Active Medications: Current Medications Acetaminophen (Tylenol) 650 mg PO Q6H PRN PRN Reason: Pain or Fever >101 Stop: 01/03/19 22:32 Last Admin: 11/06/18 16:45 Dose: 650 mg Al Hydrox/Mg Hydrox/Simethicone (Maalox) 30 ml PO Q4HR PRN PRN Reason: GI DISTRESS Stop: 01/03/19 23:42 Aripiprazole (Abilify) 10 mg PO DAILY [facility]; Protocol Stop: 01/04/19 08:59 Last Admin: 11/06/18 08:47 Dose: 10 mg Aspirin (Ecotrin) 81 mg PO DAILY [facility] Stop: 01/04/19 08:59 Last Admin: 11/06/18 08:48 Dose: 81 mg Hydroxyzine Pamoate (Vistaril) 25 mg PO Q6H PRN; Protocol PRN Reason: Anxiety Stop: 01/05/19 19:26 Levofloxacin (Levaquin Pb) 500 mg in 100 mls @ 100 mls/hr IV Q24HR BARI Stop: 01/03/19 23:30 Last Admin: 11/05/18 22:19 Dose: 100 mls/hr Ibuprofen (Motrin) 800 mg PO BIDWM [facility] Stop: 01/06/19 07:59 Magnesium Hydroxide (Milk Of Magnesia) 30 ml PO HS PRN PRN Reason: Constipation Stop: 01/05/19 19:26 Miscellaneous (Melatonin [Melatonin]) 3 mg PO HS [facility] Stop: 01/05/19 20:59 Simvastatin (Zocor) 40 mg PO HS [facility]; Protocol Stop: 01/05/19 20:59 Vitamin D (Vitamin D3) 2,000 iu PO DAILY [facility] Stop: 01/06/19 08:59 Zolpidem Tartrate (Ambien) 5 mg PO HS PRN PRN Reason: Insomnia Stop: 01/03/19 22:32 Last Admin: 11/05/18 20:46 Dose: 5 mg Physical Exam: 68 y/o female patient c/o severe weakness and dizziness. General: weak HEENT: NC/AT Neck: Supple, No JVD Lungs: CTAB Cardiovascular: johnson Abdomen: soft, non-tender Extremities: clear Neurological: no change Internal Medicine Assmt/Plan - Assessment Assessment: Severe weakness. Sinus Bradycardia. Dizziness. UTI. S/p Hysterectomy. Hx of Hyperlipidemia. - Plan Plan: Continuation of care. Monitor vitals, diet and labs. Continue present meds as directed. Supportive care. Fall precaution, frequent nursing rounds, and as needed restraints to prevent fall. Continue present care management. Nutritional Asmnt/Malnutr-PDOC - Dietary Evaluation Malnutrition Findings (Please click <Entered> for more info): see orders.
[2018-11-06] MEDS ORDERED: Non-Formulary Item 1 EA (Melatonin [Melatonin] 3 MG) PO SCH (21:00)
[2018-11-06] MEDS: Levofloxacin 500mg/100mL 500 MG/100 ML BAG IV SCH (21:32)
--- NOTE | 2018-11-06 21:45 | Progress Notes ---
DATE: 11/06/2018 SUBJECTIVE: Case was discussed with staff of the patient, reviewed records. The patient is doing better, sleeping well, eating well,. She has a card for me today. Thanking me for seeing her. She is a very nice lady in general. Sleeping well, eating well. She denies any current intent to harm herself or anyone. She denies any visual hallucination or paranoia. Denies having any side effects. Thank you very much for allowing me to participate in the care of this most interesting lady. JOB# [id number] MTDD
--- NOTE | 2018-11-06 23:17 | Consultation ---
DATE OF CONSULTATION: 11/06/2018 INFECTIOUS DISEASE CONSULTATION REFERRING PHYSICIAN: Dr. Espinoza. REASON FOR CONSULTATION: UTI. HISTORY OF PRESENT ILLNESS: The patient is a 68-year-old female with a past medical history of dyslipidemia, presented to the ER with easy fatigability for last 2 days. The patient noted to have bradycardia, so the patient was admitted for further care. Baseline workup was done and the urinalysis showed pyuria and bacteriuria. The patient was started on Levaquin. ID consult was called for antibiotic management. PAST MEDICAL HISTORY: Dyslipidemia. FAMILY HISTORY: Hypertension. SOCIAL HISTORY: The patient lives at care facility. No history of smoking, alcohol, or drug use. She is retired. PAST SURGICAL HISTORY: Includes a hysterectomy in 1999 and tonsillectomy at age of 6. PSYCHIATRIC HISTORY: Depression. MEDICATIONS: As per medication reconciliation sheet. Antibiotic neal, the patient is on Levaquin. ALLERGIES: THE PATIENT IS ALLERGIC TO HYDROCODONE, LORAZEPAM, SULFAMETHOXAZOLE, AND TRIMETHOPRIM. REVIEW OF SYSTEMS: GENERAL: The patient denies any fever or chills. HEENT: No diplopia, no photophobia, no sore throat. RESPIRATORY: No cough, no shortness of breath. CARDIOVASCULAR: No chest pain or palpitation. GASTROINTESTINAL: No nausea, no vomiting, no diarrhea. GENITOURINARY: No dysuria, no hematuria. NEUROLOGIC: No headache, no dizziness, no focal weakness. PHYSICAL EXAMINATION: VITAL SIGNS: Current vital sign shows temperature is 97.9 degrees Fahrenheit, pulse 48, respirations 19, blood pressure 102/58. GENERAL: The patient is comfortable lying in bed, not in acute distress. HEENT: Head is normocephalic, atraumatic. Oral cavity moist, pink tongue. NECK: Supple. No JVD. No carotid bruit. Trachea in midline. CHEST: Bilateral breath sounds. No crackles or wheezing. HEART: S1, S2 within normal limits. Regular rhythm. No murmur or gallop. ABDOMEN: Soft, nontender, nondistended. Bowel sounds present. EXTREMITIES: No cyanosis, no clubbing, no edema. NEUROLOGICAL: Alert, awake, and oriented x 3. No focal deficits. LABORATORY DATA: Current lab shows WBC count is 11,400, it was 15,800 yesterday, hemoglobin 13, hematocrit 38.7, platelets are 285,000, neutrophils 71%. Sodium 140, potassium 4, chloride 108, bicarbonate is 22, BUN is 25, creatinine 0.9, glucose is 104. Urinalysis showed negative nitrite, leukocyte is moderate and wbc is 6-10. Blood culture 2 sets are negative and nares culture done. Chest x-ray showed no acute disease. IMPRESSION: 1. Urinary tract infection. 2. Bradycardia. 3. Hyperlipidemia. RECOMMENDATIONS: We will continue same treatment. We will continue Zosyn. Continue Levaquin at this time. JOB# [id number]
--- NOTE | 2018-11-07 05:34 | Consultation ---
DATE OF CONSULTATION: 11/05/2018 HISTORY OF PRESENT ILLNESS: This is a 68-year-old female patient who had been complaining of weakness and tiredness. Following this, the patient was brought to the Emergency Room. The patient was found to have bradycardia and the patient is admitted. PAST MEDICAL HISTORY: The patient has a history of major depression with suicidal tendency, hypothyroid, dementia and osteoporosis. FAMILY HISTORY: Unremarkable. SOCIAL HISTORY: No history of smoking or alcohol abuse. ALLERGIES: TO HYDROCODONE, LORAZEPAM, SULFA AND BACTRIM. PHYSICAL EXAMINATION: VITAL SIGNS: Blood pressure 139/80, pulse 50, respirations 20. HEAD: Normocephalic. No lumps or bumps. EYES: Pupils are equal and reactive to light. Fundi show AV nicking, sclerae white, conjunctivae pink. NECK: Carotid 2+. Normal upstroke. JVD flat. Thyroid not palpable. Lymph nodes not palpable. CHEST: Shows increased AP diameter. No kyphosis or scoliosis. LUNGS: Bilateral bronchovesicular breath sounds. HEART: PMI in fifth intercostal space with lateral to midclavicular line. S1, S2. No S3, S4, soft systolic murmur. ABDOMEN: Soft. Liver and spleen are not palpable. No organomegaly. Bowel sounds active. NEUROLOGICAL: Unremarkable. EXTREMITIES: Peripheral pulses 2+. No pedal edema. CLINICAL IMPRESSION: Symptomatic bradycardia, major depression, suicidal, hypothyroid, dementia and hyperlipidemia. PLAN: The patient is clinically stable. We will monitor for 24 hours on telemetry to see if the patient has dizziness and any form of arrhythmias. [facility]# [id number]
[2018-11-07 05:56] LABS: % EOSINOPHILS 5.3 % (0.0-5.0); % LYMPHOCYTES 26.2 % (20.0-50.0); % NEUTROPHILS 63.5 % (40.0-80.0); EOSINOPHILE ABSOLUTE 0.5 Th/cmm (0.1-0.4); HEMATOCRIT 38.1 % (41.0-60); HEMOGLOBIN 12.9 gm/dL (12-16); LYMPHOCYTE ABSOLUTE 2.6 Th/cmm (1.5-3.0); MEAN CELL VOLUME 89.5 fl (81-100); MEAN CORPUSCULAR HEMOGLOBIN 30.3 pg (27.0-31.0); MEAN CORPUSCULAR HGB CONC 33.8 pg (28.0-36.0); MEAN PLATELET VOLUME 7.2 fl; MONOCYTE ABSOLUTE 0.5 Th/cmm (0.3-1.0); NEUTROPHILE ABSOLUTE 6.2 Th/cmm (1.8-8.0); PLATELET COUNT 262 Th/cmm (150-400); RED BLOOD COUNT 4.26 Mil/cmm (3.80-5.20); RED CELL DISTRIBUTION WIDTH 12.6 % (11.5-20.0); WHITE BLOOD COUNT 9.8 Th/cmm (4.8-10.8)
[2018-11-07 06:17] LABS: ANION GAP 14.3 (7.0-16.0); BUN - UREA NITROGEN 29 mg/dL (7-25); CALCIUM SERUM 10.1 mg/dL (8.6-10.3); CARBON DIOXIDE 20.8 mEq/L (21.0-31.0); CHLORIDE 109 mEq/L (98-107); CREATININE - SERUM 0.9 mg/dL (0.6-1.2); GFR AFRICAN-AMERICAN > 60.0 ml/min (>90); GFR NON AFRICAN-AMERICAN > 60.0 ml/min; GLUCOSE 109 mg/dL (70-105); POTASSIUM SERUM 4.1 mEq/L (3.5-5.1); SODIUM SERUM 140 mEq/L (136-145)
[2018-11-07] MEDS ORDERED: Vitamin D3 2,000 IU SGL PO SCH (09:00)
--- NOTE | 2018-11-07 11:04 | Cardiology ---
11/07/2018 SUBJECTIVE: Case has been discussed with staff of patient, reviewed records. The patient is very calm and in very good mood. She is sleeping better, eating better. She denies any current intent to harm herself or anybody. Denies any additional visual hallucination or paranoia. PLAN: I will be decreasing her dose of Abilify to 5 mg and she is doing well, very appropriate and no longer acting psychotic and will follow up with her at the nursing facility when she goes back to further adjust her medication and see how she responded and we will continue the patient in group therapy, milieu therapy, and adjust medications as needed. Thank you very much for allowing me to participate in the care of this most interesting lady. [facility]# [id number]
--- NOTE | 2018-11-07 13:12 | General Progress Note ---
Subjective - Review of Systems Service Date: 11/07/18 Subjective: Patient has no complaint of chest pain shortness of breath no dizziness Objective - Results Result Diagrams: 11/07/18 05:45 11/07/18 05:45 Recent Labs: Laboratory Last Values WBC 9.8 Th/cmm (4.8-10.8) 11/07/18 05:45 RBC 4.26 Mil/cmm (3.80-5.20) 11/07/18 05:45 Hgb 12.9 gm/dL (12-16) 11/07/18 05:45 Hct 38.1 % (41.0-60) L 11/07/18 05:45 MCV 89.5 fl (81-100) 11/07/18 05:45 MCH 30.3 pg (27.0-31.0) 11/07/18 05:45 MCHC Differential 33.8 pg (28.0-36.0) 11/07/18 05:45 RDW 12.6 % (11.5-20.0) 11/07/18 05:45 Plt Count 262 Th/cmm (150-400) 11/07/18 05:45 MPV 7.2 fl 11/07/18 05:45 Add Manual Diff YES 11/05/18 04:00 Neutrophils % 63.5 % (40.0-80.0) 11/07/18 05:45 Band Neutrophils % 0 % (0-10) 11/05/18 04:00 Lymphocytes % 26.2 % (20.0-50.0) 11/07/18 05:45 Monocytes % 5.0 % (2.0-10.0) 11/07/18 05:45 Eosinophils % 5.3 % (0.0-5.0) H 11/07/18 05:45 Basophils % 0.0 % (0.0-2.0) 11/07/18 05:45 Neutrophils (Manual) 88 % (40-80) H 11/05/18 04:00 Lymphocytes 6 % (20-50) L 11/05/18 04:00 Monocytes 4 % (2-10) 11/05/18 04:00 Eosinophils 2 % (0-5) 11/05/18 04:00 Basophils 0 % (0-3) 11/05/18 04:00 PT 10.4 SECONDS (9.5-11.5) 11/04/18 19:00 INR 1.00 (0.5-1.4) 11/04/18 19:00 PTT (Actin FS) 26.7 SECONDS (26.0-38.0) 11/04/18 19:00 Sodium 140 mEq/L (136-145) 11/07/18 05:45 Potassium 4.1 mEq/L (3.5-5.1) 11/07/18 05:45 Chloride 109 mEq/L (98-107) H 11/07/18 05:45 Carbon Dioxide 20.8 mEq/L (21.0-31.0) L 11/07/18 05:45 Anion Gap 14.3 (7.0-16.0) 11/07/18 05:45 BUN 29 mg/dL (7-25) H 11/07/18 05:45 Creatinine 0.9 mg/dL (0.6-1.2) 11/07/18 05:45 Est GFR ( Amer) > 60.0 ml/min (>90) 11/07/18 05:45 Est GFR (Non-Af Amer) > 60.0 ml/min 11/07/18 05:45 BUN/Creatinine Ratio 32.2 11/07/18 05:45 Glucose 109 mg/dL (70-105) H 11/07/18 05:45 Calcium 10.1 mg/dL (8.6-10.3) 11/07/18 05:45 Total Bilirubin 0.3 mg/dL (0.3-1.0) 11/05/18 04:00 AST 15 U/L (13-39) 11/05/18 04:00 ALT 13 U/L (7-52) 11/05/18 04:00 Alkaline Phosphatase 91 U/L (34-104) 11/05/18 04:00 Troponin I < 0.01 ng/mL (0.01-0.05) L 11/05/18 11:56 Total Protein 6.8 gm/dL (6.0-8.3) 11/05/18 04:00 Albumin 3.9 gm/dL (3.7-5.3) 11/05/18 04:00 Globulin 2.9 gm/dL 11/05/18 04:00 Albumin/Globulin Ratio 1.3 (1.0-1.8) 11/05/18 04:00 TSH 1.82 uIU/ml (0.34-5.60) 11/04/18 19:00 Urine Source CLEAN C 11/04/18 18:50 Urine Color YELLOW 11/04/18 18:50 Urine Clarity CLEAR (CLEAR) 11/04/18 18:50 Urine pH 5.5 (4.6 - 8.0) 11/04/18 18:50 Ur Specific [place] 1.020 (1.005-1.030) 11/04/18 18:50 Urine Protein NEGATIVE mg/dL (NEGATIVE) 11/04/18 18:50 Urine Glucose (UA) NEGATIVE mg/dL (NEGATIVE) 11/04/18 18:50 Urine Ketones NEGATIVE mg/dL (NEGATIVE) 11/04/18 18:50 Urine Blood NEGATIVE (NEGATIVE) 11/04/18 18:50 Urine Nitrate NEGATIVE (NEGATIVE) 11/04/18 18:50 Urine Bilirubin NEGATIVE (NEGATIVE) 11/04/18 18:50 Urine Urobilinogen 0.2 E.U./dL (0.2 - 1.0) 11/04/18 18:50 Ur Leukocyte Esterase MODERATE (NEGATIVE) H 11/04/18 18:50 Urine RBC 0-2 /hpf (0-5) 11/04/18 18:50 Urine WBC 6-10 /hpf (0-5) H 11/04/18 18:50 Ur Epithelial Cells FEW /lpf (FEW) 11/04/18 18:50 Urine Bacteria FEW /hpf (NONE SEEN) 11/04/18 18:50 - Physical Exam Vitals and I&O: Vital Signs Temp 97.9 F 11/07/18 12:00 Pulse 48 11/07/18 12:00 Resp 18 11/07/18 12:00 BP 117/73 11/07/18 12:00 Pulse Ox 99 11/07/18 12:00 Intake & Output 11/06/18 11/07/18 11/07/18 18:59 06:59 18:59 Intake Total 1200 100 Output Total 2 Balance 1200 98 Weight (lbs) 77.111 kg 79.832 kg Intake: Oral 1200 100 Output: Urine 2 Other: # Voids 3 3 # Bowel Movements 0 0 Weight Source Bedscale Bedscale Active Medications: Current Medications Acetaminophen (Tylenol) 650 mg PO Q6H PRN PRN Reason: Pain or Fever >101 Stop: 01/03/19 22:32 Last Admin: 11/06/18 16:45 Dose: 650 mg Al Hydrox/Mg Hydrox/Simethicone (Maalox) 30 ml PO Q4HR PRN PRN Reason: GI DISTRESS Stop: 01/03/19 23:42 Aripiprazole (Abilify) 5 mg PO DAILY [facility]; Protocol Stop: 01/07/19 08:59 Aspirin (Ecotrin) 81 mg PO DAILY [facility] Stop: 01/04/19 08:59 Last Admin: 11/07/18 08:56 Dose: 81 mg Hydroxyzine Pamoate (Vistaril) 25 mg PO Q6H PRN; Protocol PRN Reason: Anxiety Stop: 01/05/19 19:26 Levofloxacin (Levaquin Pb) 500 mg in 100 mls @ 100 mls/hr IV Q24HR BARI Stop: 01/03/19 23:30 Last Admin: 11/06/18 21:32 Dose: 100 mls/hr Ibuprofen (Motrin) 800 mg PO BIDWM [facility] Stop: 01/06/19 07:59 Last Admin: 11/07/18 08:56 Dose: 800 mg Magnesium Hydroxide (Milk Of Magnesia) 30 ml PO HS PRN PRN Reason: Constipation Stop: 01/05/19 19:26 Simvastatin (Zocor) 40 mg PO HS [facility]; Protocol Stop: 01/05/19 20:59 Last Admin: 11/06/18 21:16 Dose: 40 mg Vitamin D (Vitamin D3) 2,000 iu PO DAILY [facility] Stop: 01/06/19 08:59 Last Admin: 11/07/18 08:56 Dose: 2,000 iu Zolpidem Tartrate (Ambien) 5 mg PO HS PRN PRN Reason: Insomnia Stop: 01/03/19 22:32 Last Admin: 11/05/18 20:46 Dose: 5 mg General: Alert, No acute distress HEENT: Mucous membr. moist/pink Neck: Supple, +2 carotid pulse wo bruit Cardiovascular: Regular rate, Normal S1, Normal S2, Systolic murmurs Abdomen: Bowel sounds, Soft, Other (no organomegaly) Extremities: Pulses (normal) Neurological: Strength at 5/5 X4 ext, Normal tone, Cranial nerves 3-12 NL, Reflexes 2+ Assessment/Plan - Problem List Patient Problems: All Active Problems WEAKNESS AND FATIGUE WITH BRADYCARDIA (Acute) - Assessment Assessment: Major depression Asymptomatic bradycardia Hypotension improved Mild dementia - Plan Plan: Cardiac status stable for discharge [place] echocardiogram unremarkable
--- NOTE | 2018-11-07 22:09 | Consultation ---
DATE OF CONSULTATION: 11/07/2018 REASON FOR CONSULTATION: Fatigue and weight loss. HISTORY OF PRESENT ILLNESS: This consult was obtained through the request of Dr. Espinoza for this 68-year-old with a history of bradycardia, depression, presented to the hospital because of fatigue and low heart rate, also with weakness. Gastrointestinal consult was called since the patient has been losing weight and because of the above symptoms. The patient has never had an endoscopy or colonoscopy and has no intention of having them either because she does not have any family history, even though she herself had uterine cancer which does not know in her family as she understands the logic, but she is not willing to have a procedure now. The patient stated that she has lost weight when her mother a year ago, but she gave them back. She has always running low heart rate and she is feeling dizzy and tired. She is a retired nurse. PAST MEDICAL HISTORY: Bradycardia and hyperlipidemia. PAST SURGICAL HISTORY: She has had hysterectomy a few years ago. She had tonsillectomy and adenoidectomy. SOCIAL HISTORY: She smoked 5 years from the age of [age]. She drinks alcohol socially. She is an IV drug abuser. FAMILY HISTORY: Negative for GI malignancies. ALLERGIES: HYDROCODONE, LORAZEPAM, SULFA, TRIMETHOPRIM. MEDICATIONS: Tylenol, Maalox, Abilify, Ecotrin, Vistaril, Motrin, Levaquin, milk of magnesia, Zocor, vitamin D, Ambien. REVIEW OF SYSTEMS: Denies any more weight loss. No nausea, vomiting. No diarrhea. She occasionally had to be constipation, no bleeding, no abdominal pain. PHYSICAL EXAMINATION: GENERAL: The patient is awake, oriented to self, place, and time, in no acute distress. VITAL SIGNS: Blood pressure is 116/72, heart rate 48, respiratory rate 18, temperature is 97.8. HEAD AND NECK: Pupils reactive to light. Extraocular muscles intact. Sclerae are anicteric. Conjunctivae not pale. Oral cavity, no lesion. NECK: Supple. CHEST: Good air entry. LUNGS: Clear to auscultation. CARDIOVASCULAR: Showed regular rate and rhythm. No murmur or gallop. ABDOMEN: Soft, positive bowel sounds. Abdomen was not distended, not tender. Bowel sounds are present. EXTREMITIES: Lower extremities, no edema. CENTRAL NERVOUS SYSTEM: Grossly nonfocal. LABORATORY DATA: CBC initially white count was 15.8, now is 9.8. Rest of CBC unremarkable. PT is normal. Chemistry showed normal liver enzymes. The patient had only x-ray of the chest. IMPRESSION: A 68-year-old with weakness and fatigue with history of weight loss. ASSESSMENT AND PLAN: 1. Weakness and fatigue. This is most likely from bradycardia. The patient also had leukocytosis and might have some infection when she came in at this time. She has no GI complaint and just want any GI workup, so continue current management for the bradycardia and further plan per cardiology problem. 2. History of weight loss. This happened when she was depressed when she got that the antidepressant. She started to gain weight. She is fine now and again she is refusing endoscopy or colonoscopy. Other medical problems such as hyperlipidemia, depression, bradycardia, etc., as per Dr. Espinoza. Thank you Dr. Espinoza for the opportunity to participate in the care of the patient. If you have any further questions, please let me know. JOB# [id number]
--- NOTE | 2018-11-08 00:26 | Consultation ---
DATE OF CONSULTATION: 11/07/[address] Reyna. HISTORY AND PHYSICAL: This is a 68-year-old female patient, who has poor oral intake, brought to the hospital with shortness of breath, congestion, elevated white count of 23.6 with pneumonia. The patient during hospital stay developed supraventricular tachycardia and hence Cardiology consult is requested. The patient is given Cardizem IV push 20 mg. PAST MEDICAL HISTORY: Sepsis, CKD, dementia, hypertension, congestive heart failure, stable angina, COPD, cerebral palsy. FAMILY HISTORY: Unremarkable. SOCIAL HISTORY: No history of smoking or alcohol abuse. ALLERGIES: None. PHYSICAL EXAMINATION: VITAL SIGNS: Blood pressure 112/70; pulse 120, irregular; and respirations 28. HEAD: Normocephalic. No lumps or bumps. EYES: Pupils equal, reactive due to light. Fundi show AV nicking, sclerae white, conjunctivae pink. NECK: Carotid 2+. Normal upstroke. JVD flat. Thyroid not palpable. Lymph nodes not palpable. CHEST: Shows increased AP diameter. No kyphosis or scoliosis. LUNGS: Bilateral bronchovesicular breath sounds. Occasional wheeze. No rales. HEART: PMI fifth intercostal space with lateral to midclavicular line. S1, S2, S3, S4, sinus tachycardia. ABDOMEN: Soft. Liver, spleen not palpable. No organomegaly. Bowel sounds active. NEUROLOGIC: Unremarkable. EXTREMITIES: Peripheral pulses 2+. No pedal edema. CLINICAL IMPRESSION: 1. Supraventricular tachycardia. 2. Pneumonia. 3. Sepsis. 4. Dementia. 5. Osteoporosis. 6. Hypertension. 7. Congestive heart failure. 8. Diastolic dysfunction chronic. 9. Stable angina. 10. Chronic obstructive pulmonary disease. 11. Cerebral palsy. PLAN: We will get a BNP level, echocardiogram, IV antibiotics, and give Cardizem IV push to control the heart rate as patient not taking orally. [facility]# [id number]
== END 2018-11-07 18:25 | DRG 871 ==
LOC: ER 18:14 → TELE 19:57
PROVIDERS: ADMIT Internal Medicine; ATTEND Internal Medicine
DX: A41.9 Sepsis, unspecified organism (principal); J18.9 Pneumonia, unspecified organism; N39.0 Urinary tract infection, site not specified; F33.2 Major depressive disorder, recurrent severe without psychotic features; I47.1 Supraventricular tachycardia; J44.0 Chronic obstructive pulmonary disease with (acute) lower respiratory infection; I50.32 Chronic diastolic (congestive) heart failure; I11.0 Hypertensive heart disease with heart failure; R00.1 Bradycardia, unspecified; E78.5 Hyperlipidemia, unspecified; F03.90 Unspecified dementia, unspecified severity, without behavioral disturbance, psychotic disturbance, mood disturbance, and anxiety; E03.9 Hypothyroidism, unspecified; M81.0 Age-related osteoporosis without current pathological fracture; I20.9 Angina pectoris, unspecified; G80.9 Cerebral palsy, unspecified; Z82.49 Family history of ischemic heart disease and other diseases of the circulatory system; Z90.710 Acquired absence of both cervix and uterus; Z88.8 Allergy status to other drugs, medicaments and biological substances
CPT/HCPCS: 36415-UA; 71045-TC; 80048-TC; 80053-TC; 81001-TC; 84443-TC; 84484-TC; 85007-TC; 85025-TC; 85610-TC; 87086-90; 93005; J1956; Z7610